=== PATIENT | female | born 1975 | race Caucasian/White ===

== ENCOUNTER 2024-02-27 18:15 | Emergency (ER) | payer OTHER, SELFPAY ==
--- NOTE | ~2024-02-27 | XR_ITS ---
EXAMINATION: XR chest 2V 02/27/2024 19:01 INDICATION: Chest pain PROCEDURE: 2 view chest COMPARISON: No prior studies for comparison. FINDINGS: The lungs are clear. The cardiomediastinal silhouette is within normal limits. There are no pleural effusions. There is no pneumothorax suspected. IMPRESSION: 1: NO ACUTE CARDIOPULMONARY DISEASE. Reviewed, dictated and finalized at location A.
--- NOTE | 2024-02-27 18:16 | ECG_ITS ---
SEE SCANNED COPY FOR CONFIRMED REPORT MTDD
[2024-02-27 18:25] VITALS: BP 127/98; PULSE 92; RESP 16; TEMP 36.6; O2SAT 99
[2024-02-27 19:00] LABS: Basophils Absolute Auto 0.1 K/mm3 (0.0-0.1); Basophils Percent Auto 0.6 % (0.2-1.2); Eosinophils Absolute Auto 0.1 K/mm3 (0-0.3); Eosinophils Percent Auto 1.1 % (0-4.4); Hemoglobin 14.9 g/dL (12.0-15.0); Immature Granulocyte Absolute 0.03 K/mm3 (0.00-0.031); Immature Granulocyte Percent A 0.3 % (0-0.5); Lymphocytes Absolute Auto 3.19 K/mm3 (0.9-3.2); Lymphocytes Percent Auto 31.6 % (18.3-44.2); Mean Corpuscular HGB Conc 33.1 g/dl (32-36); Mean Corpuscular Hemoglobin 31.1 pg (26-34); Mean Corpuscular Volume 93.9 fl (80-100); Mean Platelet Volume 10.7 fl (7.4-10.4); Monocytes Absolute Auto 0.8 K/mm3 (0.1-0.6); Monocytes Percent Auto 7.7 % (2.6-8.5); Neutrophils Absolute Auto 5.9 K/mm3 (1.3-6.7); Neutrophils Percent Auto 58.7 % (45.5-73.1); Platelet Count Result 338 k/mm3 (150-375); Red Blood Count 4.79 M/mm3 (4.2-5.4); Red Cell Distribution Width 13.2 % (11.5-14.5); White Blood Count 10.1 K/mm3 (4.5-10.0)
[2024-02-27 19:04] LABS: Alanine Aminotransferase 15 U/L (6-35); Albumin Level 4.7 g/dL (3.5-5.1); Alkaline Phosphatase 79 U/L (38-126); Anion Gap 9 mmol/L (4-12); Aspartate Amino Transferase 21 U/L (14-36); Bilirubin,Total 0.5 mg/dL (0.2-1.3); Blood Urea Nitrogen 4 mg/dL (7-17); Calcium 8.9 mg/dL (8.4-10.2); Carbon Dioxide 22 mmol/L (22-30); Chloride 107 mmol/L (98-107); Estimated CRCL calculation 90 ml/min; Estimated Glomerular Filt Rate > 60; Glucose 123 mg/dL (65-110); Lipase 123 U/L (23-300); Potassium 3.6 mmol/L (3.4-5.0); Sodium 138 mmol/L (137-145)
[2024-02-27 19:05] LABS: Prothrombin Time 13.2 Seconds (11.1-14.7)
[2024-02-27 19:15] LABS: Troponin I 0.015 ng/mL (0.000-0.034)
--- NOTE | 2024-02-27 21:16 | ECG_ITS ---
SEE SCANNED COPY FOR CONFIRMED REPORT MTDD
[2024-02-27] MEDS: Please add drug allergy info to patient profile. 1 EACH XX (21:18)
[2024-02-27 21:21] VITALS: BP 156/88; PULSE 76; PULSE 83; RESP 17; O2SAT 100; O2SAT 99
[2024-02-27] MEDS: ASPIRIN 81 MG CHEWABLE TABLET 324 MG PO (21:44)
[2024-02-27 21:45] VITALS: BP 156/88; PULSE 88; RESP 20; O2SAT 98
[2024-02-27 21:54] LABS: Troponin I 0.014 ng/mL (0.000-0.034)
[2024-02-27 22:00] LABS: Appearance Urine Clear (Clear); Bilirubin Urine Negative (Negative); Blood Urine Negative (Negative); Color Urine Yellow (Yellow); Glucose Urine UA Negative (Negative); Ketones Urine Trace mg/dL (Negative); Leukocyte Esterase Ur Negative LEU/UL (Negative); Nitrate Urine Negative (Negative); Protein Urine Negative (Negative); Specific Grav Ur 1.022 (1.001-1.035); pH Urine 5.5 (5.0-9.0)
[2024-02-27 22:09] LABS: Add Urine Microscopic? NO
[2024-02-27 22:17] LABS: Amphetamine Screen Urine Negative (Negative); Barbiturate Screen Urine Negative (Negative); Benzodiazepines Screen Urine Positive (Negative); Cannabinoid Screen Urine Positive (Negative); Cocaine Screen Urine Negative (Negative); Methadone Screen Urine Negative (Negative); Opiate Screen Urine Negative (Negative); Phencyclidine Screen Urine Negative (Negative)
--- NOTE | 2024-02-27 22:43 | ED.GENADULT ---
HPI - General Adult General Chief complaint: Chest Pain Stated complaint: chest pain Time Seen by Provider: 02/27/24 21:12 History of Present Illness HPI narrative: This is a 48 female presenting multiple complaints. She has complained that she has a lump on the back of her skull. She says she got CT the past and was told this is a lipoma. However she now feels like it has dropped down neck. She also has a lump behind her right nipple. She says she just noticed yesterday it is painful to touch. No erythema or redness. Patient is also complaining of subjective fever and chills with a cough. Related Data Home Medications Medication Instructions Recorded Confirmed hydroxychloroquine 200 mg tablet 200 mg PO DAILY 02/27/24 02/27/24 Allergies Allergy/AdvReac Type Severity Reaction Status Date / Time No Known Allergies Allergy Verified 02/27/24 21:18 Exam Narrative: APPEARANCE: No apparent distress. Head: atraumatic, EYES: EOMI, NOSE: Atraumatic NECK: Trachea midline RESPIRATORY: No increased rate of breathing , clear to auscultation Breast exam: Tender mass behind the right nipple, point of care ultrasound was not consistent with abscess. No overlying skin changes CARDIOVASCULAR: RRR, no peripheral edema ABDOMINAL: Non-distended soft nontender MUSCULOSKELETAl: No obvious deformities NEURO: Alert. Moving 4/4 extremities SKIN:: Warm, dry. Normal color PSYCHIATRIC: Normal affect Course Vital Signs Vital signs: Vital Signs Temperature 97.8 F 02/27/24 18:25 Pulse Rate 92 02/27/24 18:25 Respiratory Rate 16 02/27/24 18:25 Blood Pressure 127/98 H 02/27/24 18:25 Pulse Oximetry 99 02/27/24 18:25 Oxygen Delivery Room Air 02/27/24 18:25 Temperature 97.8 F 02/27/24 18:25 Pulse Rate 88 02/27/24 21:45 Respiratory Rate 20 02/27/24 21:45 Blood Pressure 156/88 H 02/27/24 21:45 Pulse Oximetry 98 02/27/24 21:45 Oxygen Delivery Room Air 02/27/24 21:21 Medical Decision Making [facility] Narrative Medical decision making narrative: -Course: 48-year-old female presenting with multiple complaints including a chronic lump behind her left ear, a lump behind her right breast and a cough with subjective fevers. Workup was ordered per nursing protocol I added viral swabs chest x-ray. I ultrasounded the lump on the patient's breast. there is no evidence abscess. I recommended primary care follow-up for breast mass workup. At this point the patient asked me if I was going to give her antibiotics or not for her infection. When I asked her what infection she was speaking about she said my cough. I told her that I was waiting for the viral swabs to return before we discussed abx. The patient became irate and eloped. patient had clear lungs, a negative chest x-ray respiratory distress. Patient's urine drug screen was positive for benzodiazepines/cannabinoids. Patient had denied any drug use. -DDX includes but is not limited to: Viral illness, pneumonia Breast abscess, neoplasm -Co-morbidities complicating care: benzodiazepine and cannabinoid use, lupus -Social determinants of health: patient just moved here from [place]. denies use of drugs or alcohol although urine drug screen was positive for THC and benzodiazepines. -Shared decision making / Disposition: Eloped Vital Signs Vital Signs: Vital Signs Temperature 97.8 F 02/27/24 18:25 Pulse Rate 92 02/27/24 18:25 Respiratory Rate 16 02/27/24 18:25 Blood Pressure 127/98 H 02/27/24 18:25 Pulse Oximetry 99 02/27/24 18:25 Oxygen Delivery Room Air 02/27/24 18:25 Temperature 97.8 F 02/27/24 18:25 Pulse Rate 88 02/27/24 21:45 Respiratory Rate 20 02/27/24 21:45 Blood Pressure 156/88 H 02/27/24 21:45 Pulse Oximetry 98 02/27/24 21:45 Oxygen Delivery Room Air 02/27/24 21:21 Lab Data 02/27/24 18:31 02/27/24 18:31 Labs: Lab Results 02/27/24 02/27/24
[2024-02-27 22:53] LABS: Influenza A QL RT-PCR Negative (Negative); Influenza B QL RT-PCR Negative (Negative); RSV RNA, RT-PCR Negative (Negative); SARS-CoV-2 RNA PCR Negative (Negative)
== END 2024-02-27 22:40 | disposition left against medical advice (07) ==
PROVIDERS: Emergency Medicine; Emergency Provider Emergency Medicine
DX: N63.10 Unspecified lump in the right breast, unspecified quadrant (principal); F13.20 Sedative, hypnotic or anxiolytic dependence, uncomplicated; F12.20 Cannabis dependence, uncomplicated; Z20.822 Contact with and (suspected) exposure to COVID-19; M32.9 Systemic lupus erythematosus, unspecified
CPT/HCPCS: 36415; 71046; 80053; 80307; 81003; 83690; 84484; 85025; 85610; 85730; 87637; 93005; 99284; A9270

== ENCOUNTER 2024-03-02 16:08 | Outpatient (CLI) | payer OTHER, SELFPAY ==
--- NOTE | ~2024-03-02 | US_ITS ---
US breast RT complete 03/02/2024 16:31 Indication: Abscess of the right nipple Procedure: High-resolution ultrasound of the right breast Comparison: No prior studies for comparison. Findings: In the subareolar location of the right breast there is a complex heterogeneous area with f luid component and increased vascularity. The margins are not well-defined for measurement. Impression: 1: Complex partially cystic area of subareolar soft tissue, most likely abscess given the clinical hi story. Recommend follow-up ultrasound in 6-8 weeks following appropriate therapy. BI-RADS CATEGORY 3-PROBABLY BENIGN FINDING Reviewed, dictated and finalized at location B. Impression: 1: Complex partially cystic area of subareolar soft tissue, most likely abscess given the clinical history. Recommend follow-up ultrasound in 6-8 weeks follow ing appropriate therapy. BI-RADS CATEGORY 3-PROBABLY BENIGN FINDING
== END 2024-03-02 16:09 | disposition home or self-care (01) ==
LOC: ANHIMG 16:08
PROVIDERS: PCP Family Medicine; Visit Provider Family Medicine
DX: N61.1 Abscess of the breast and nipple (principal); R92.8 Other abnormal and inconclusive findings on diagnostic imaging of breast
CPT/HCPCS: 76641

== ENCOUNTER 2024-04-17 07:43 | Outpatient (CLI) | payer OTHER, SELFPAY ==
--- NOTE | ~2024-04-17 | US_ITS ---
US breast RT limited 04/17/2024 08:14 Indication: History of breast abscess. Mastodynia. Procedure: High-resolution Limited ultrasound of the right breast Comparison: Ultrasound dated 03/02/2024 Findings: In the periareolar location the right breast at 2:00 there is a irregular shaped hypoechoic structure measuring 1.4 x 1.4 x .6 cm compared with 2.3 x 1.8 x 1 cm on prior examination, likely re solving infection. No other discrete mass identified. There is increased vascularity within this soft tissue. No significant posterior features. Impression: 1: Decreased size of irregular hypoechoic mass in the periareolar location of the right breast at 2:0 0, likely resolving infection. Recommend follow-up ultrasound in 2-3 months following appropriate the rapy. BI-RADS CATEGORY 3-PROBABLY BENIGN FINDING Reviewed, dictated and finalized at location B. Impression: 1: Decreased size of irregular hypoechoic mass in the periareolar location of t he right breast at 2:00, likely resolving infection. Recommend follow-up ultras ound in 2-3 months following appropriate therapy. BI-RADS CATEGORY 3-PROBABLY BENIGN FINDING
== END 2024-04-17 07:44 | disposition home or self-care (01) ==
PROVIDERS: PCP Family Medicine; Visit Provider Surgery
DX: N64.4 Mastodynia (principal); N61.1 Abscess of the breast and nipple
CPT/HCPCS: 76642

== ENCOUNTER 2024-05-22 01:24 | Day surgery (SDC) | payer OTHER, SELFPAY ==
[2024-05-12 10:19] VITALS: BMI 25.0
--- NOTE | 2024-05-12 10:37 | SUR.PREOP ---
Report to the Outpatient Waiting Room, entrance under the green pavilion located off [facility], at time 0800 on date 05/22/24. Planned Procedure Time: 1000. Time changes happen often and if your time is changed the preop area will call you the afternoon before. - You and your visitor will be asked to self-screen and do not enter if you have any COVID symptoms. - A mask is optional within the hospital at this time. Patients may have clear liquids (water, carbonated beverages, clear teas, apple juice) until 3 hours prior to surgery with a maximum of 20 ounces. - No food from midnight until time of surgery Take the following medications with a SIP of water the morning of surgery: MAY TAKE CYCLOBENZAPRINE AND PERCOCET IF NEEDED DO NOT STOP ANY OF YOUR OTHER PRESCRIPTION MEDICATIONS PRIOR TO SURGERY ?EXCEPT THE FOLLOWING Medications to discontinue per physician N/A Date to take last dose N/A Please no make-up, nail lithuanian, hairspray, perfume, deodorant, or body powder the day of surgery. No jewelry (including any body piercings) or valuables the day of surgery, leave them at home. Please take a shower or bath the night before, or the morning of, surgery with an antibacterial soap. Wear comfortable, loose fitting clothing. Children are encouraged to wear pajamas. - Jewelry must be removed prior to entering the operating room. Rings and piercings that are not removed may be cut off. - The hospital will not accept responsibility for valuables. - Please leave all valuables, including medications, at home the day of surgery. If you are going home after surgery, a licensed armored car guard and driver must drive you home. - NO public transportation without another adult if you receive anesthesia. - We recommend that an adult stay with you for 24 hours following discharge. - We also recommend that you do not drive, make important decision, drink alcoholic beverages, or take any drugs that were not prescribed by your health care provider for at least 24 hours after your discharge time. Follow any additional instructions given to you from your surgeon. If you or anyone in your household have experienced Covid symptoms in the past week, please notify your surgeon or the nurse liaison at the phone number below for possible testing. Telephone instructions given to SINTIA IBARRA and asked if any additional questions and then verbalized understanding. Patient advised to call surgeon office or pre surgery nurse liaison [phone] if any additional questions.
--- NOTE | 2024-05-21 15:47 | PM.IMHP ---
H&P: HPI History of Present Illness Date/Time: 05/21/24 15:47 Chief Complaint: left postauricular mass Narrative: planned procedure Review of Systems Review of Systems: All systems reviewed & are unremarkable except as noted in HPI and below PMFSH Past Medical History Medical History (Updated 04/28/24 @ 11:44 by Jennifer Brock MD) Breast abscess Breast pain Surgical History Surgical History H/O breast augmentation 2003 H/O: hysterectomy 1996 History of back surgery 2007 2010 2019 Family History Family History Father Hypertension Depression Cerebrovascular accident Anxiety Heart disease Mother Thyroid disease Social History Social History (Updated 04/16/24 @ 11:01 by Lesley Taylor CMA) Smoking packs per day: 1.5 Smoking cigarettes per day: 30.0 Years smoked: 15 Smoking pack-years: 22.50 Smoking status: Former smoker Tobacco type: cigarettes Smoking end date: 11/18/08 Alcohol intake: current Drinks per week: 1 Alcohol use details: Once every couple months Substance use: never Substance use type: does not use Last use: quit 2008 Do You Feel Safe in your Home?: Yes Lack of Transportation: No Lack of Food: Never True Current Housing: I Have Housing Concerned About Future Housing: No Difficulty Paying Gas/Electric Bills: No Difficulty Paying for Meds: No Currently Unemployed: Decline to Answer Education: Bachelor's Degree Difficulty w/ Childcare or Family Care: No Living arrangements: with family Spiritual care concerns: No Meds Home Medications and Allergies Home Medications Medication Instructions Recorded Confirmed Type hydroxychloroquine 200 mg tablet 200 mg PO DAILY 02/27/24 05/12/24 History cyclobenzaprine 5 mg tablet 5 mg PO TID PRN Pain 03/25/24 05/12/24 History hydrocortisone 1 % topical cream 1 applic topical TID PRN Itching 03/25/24 05/12/24 History (Anti-Itch (hydrocortisone)) oxycodone-acetaminophen 5 mg-325 1 tablet PO TID PRN Pain 03/25/24 05/12/24 History mg tablet (Percocet) tretinoin 0.025 % topical cream 1 applic topical QHS 03/25/24 05/12/24 History amoxicillin 875 mg-potassium 1 tablet PO BID #20 tabs 05/18/24 Rx clavulanate 125 mg tablet Allergies Allergy/AdvReac Type Severity Reaction Status Date / Time No Known Allergies Allergy Verified 04/28/24 11:29 Exam Narrative: left postauricular mass Assessment and Plan Assessment and plan (1) Mass of postauricular area: Code(s): R22.0 - Localized swelling, mass and lump, head Status: Acute Assessment and Plan: Plan, OR for excision of left post auricular mass. LMA ok. Risks discussed bleeding infection damage to surrounding structures need for further procedures failure to resolve symptoms regrowth of lesion. Need further treatment of more sinister in etiology such as malignancy. Cosmetic change left shave the hair. Possible need for drain placement. Patient voiced understanding of these risks and agreed. Possible damage to any structure of the clavicles myself possible damage to any structure during placement of LMA.
[2024-05-22] VITALS (7 sets, daily range): BP systolic 116–142; BP diastolic 79–96; PULSE 65–79; RESP 12–20; TEMP 36–36.1; O2SAT 99–100
--- NOTE | 2024-05-22 07:19 | WPDHPUPDATE1 ---
History and Physical Update Update Date/Time: 05/22/24 07:19 History and Physical has been reviewed, including an updated exam of the patient. There are NO changes in the patient's condition. Risks, benefits, and alternatives have been discussed and questions answered. Patient agrees to proceed with procedure.
[2024-05-22] MEDS: LACTATED RINGERS 1,000 ML 30 ML IV CONT ×2 (09:00→11:18)
--- NOTE | 2024-05-22 09:23 | WPDANESEPPF ---
Anes - Initial Pre Proc Eval Procedure: Operation Date: 05/22/24 10:00 Proposed Procedures p Left Sided Postauricular Excision of Cyst/ Lesion - Hayden Eng MD Date/Time: 05/22/24 09:23 Surgeon: Hayden Eng MD Pre Op Diagnosis: post auricular mass Patient Data Age: 48 Gender: F Height: 1.68 m Weight: 71.55 kg Last Vital Signs Temp 36.1 C L 05/22/24 08:22 Pulse 79 05/22/24 08:22 Resp 20 05/22/24 08:22 BP 142/88 H 05/22/24 08:22 Pulse Ox 100 05/22/24 08:22 O2 Del Method Room Air 05/22/24 08:22 Allergies Allergy/AdvReac Type Severity Reaction Status Date / Time No Known Allergies Allergy Verified 05/22/24 08:22 Home Medications Medication Instructions Recorded Confirmed Type hydroxychloroquine 200 mg tablet 200 mg PO DAILY 02/27/24 05/22/24 History cyclobenzaprine 5 mg tablet 5 mg PO TID PRN Pain 03/25/24 05/22/24 History hydrocortisone 1 % topical cream 1 applic topical TID PRN Itching 03/25/24 05/22/24 History (Anti-Itch (hydrocortisone)) oxycodone-acetaminophen 5 mg-325 1 tablet PO TID PRN Pain 03/25/24 05/22/24 History mg tablet (Percocet) tretinoin 0.025 % topical cream 1 applic topical QHS 03/25/24 05/22/24 History amoxicillin 875 mg-potassium 1 tablet PO BID #20 tabs 05/18/24 05/22/24 Rx clavulanate 125 mg tablet Patient hx anesthesia problems: none Family hx anesthesia problems: none Results Review: All pre-operative results and documents have been reviewed as part of the pre-operative evaluation. 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 Surgical History Surgical History H/O breast augmentation 2003 H/O: hysterectomy 1996 History of back surgery 2007 2010 2019 Family History Family History Father Hypertension Depression Cerebrovascular accident Anxiety Heart disease Mother Thyroid disease Social History Social History Smoking packs per day: 1.5 Smoking cigarettes per day: 30.0 Years smoked: 15 Smoking pack-years: 22.50 Smoking status: Former smoker Tobacco type: cigarettes Smoking end date: 11/18/08 Alcohol intake: current Drinks per week: 1 Alcohol use details: Once every couple months Substance use: never Substance use type: does not use Last use: quit 2008 Do You Feel Safe in your Home?: Yes Lack of Transportation: No Lack of Food: Never True Current Housing: I Have Housing Concerned About Future Housing: No Difficulty Paying Gas/Electric Bills: No Difficulty Paying for Meds: No Currently Unemployed: Decline to Answer Education: Bachelor's Degree Difficulty w/ Childcare or Family Care: No Living arrangements: with family Spiritual care concerns: No Anes - Eval Final PreProcedure Day of Procedure 05/22/24 09:23 Patient weight: normal Heart: regular rate and rhythm Lungs: clear to auscultation Airway: Mallampati scale class II Neurological: alert and oriented Last oral intake: >/= 8 hours ASA classification: III Emergent: no Anesthetic plan: proceed Anesthesia type and monitoring: general LMA and standard monitoring Results Review: All pre-operative results and documents have been reviewed as part of the pre-operative evaluation. Informed Consent: The patient's anesthetic plan and its attendant risks and benefits were discussed with the patient/family/POA. Questions were solicited and answers provided to the satisfaction of the patient/family/POA.
[2024-05-22] MEDS: LIDO 1%/EPINEPHRINE 1:100,000 50 ML VIAL 10 ML INFILTRATE (10:00)
[2024-05-22] MEDS: ceFAZolin SODIUM 1 GM VIAL 2 GM IV PUSH (10:03)
--- NOTE | 2024-05-22 12:05 | P.OP_ITS ---
Procedure Note - Detailed Date of Procedure 05/22/24 Pre-op Diagnosis post auricular massLeft-sided Post-op Diagnosis Same Procedure Performed excision of left scalp / postauricular mass mass was about 3 cm Surgeon Hayden Eng MD Anesthesia General Indications see above Findings large cyst consistent with epidermal inclusion cyst. Removed in totality. This deep it went down all the way to the periosteum. Description of Procedure Patient identified consent verified preop. Patient brought operating. Time- out performed. General anesthesia induced endotracheal tube sorry LMA secured. Patient prepped draped position procedure confirmed. Site was marked. A 15 blade utilized to cut through the epidermis and dermis. Incision was only about 2-3 cm long. This was incised over pre drawn surgical incision prior to incision about 0.5 cc 1% lidocaine with [id number] parts epinephrine was injected deep to the pre drawn surgical incision. Blunt dissection was carried down through the subcutaneous fat. The cyst was then encountered dissected around with tenotomy scissors. Any bleeding was controlled with bipolar electrocautery setting of 10. The cyst was completely circumscribed and removed. The wound was then copiously irrigated out with sterile normal saline. The cyst did rupture upon removal. The entire cyst wall was accounted for. Deep layers closed with 3 interrupted Vicryl sutures. Skin was closed with running 5 0 fast gut suture. Antibiotic ointment was applied. Patient tolerated the procedure well no complications blood loss 1 cc. I performed all dictated portions procedure no complications. Estimated Blood Loss 1 Drains No Packing No Pathology Yes Complications No immediate complications Condition Stable Disposition PACU [facility] Billing Surgery - Charge Forward: Surgery Billing
[2024-05-22] MEDS: oxyCODONE HCL (*CRX) 5 MG TAB IR PO (12:16)
== END 2024-05-22 12:36 | disposition home or self-care (01) ==
PROVIDERS: PCP Family Medicine; Visit Provider Otolaryngology
PROC: (CPT 11423; principal; 2024-05-22 10:00)
DX: L72.0 Epidermal cyst (principal); J44.9 Chronic obstructive pulmonary disease, unspecified; Z98.890 Other specified postprocedural states; Z98.1 Arthrodesis status; Z79.891 Long term (current) use of opiate analgesic; Z87.891 Personal history of nicotine dependence; Z86.79 Personal history of other diseases of the circulatory system; Z82.49 Family history of ischemic heart disease and other diseases of the circulatory system
CPT/HCPCS: 11423; 12032; 88305; A9270; J0360; J0690; J2250; J2405; J2704; J3010; J7120

== ENCOUNTER 2024-06-10 00:34 | Day surgery (SDC) | payer OTHER, SELFPAY ==
[2024-06-08 14:42] VITALS: BMI 25.0
--- NOTE | 2024-06-08 15:10 | PC.NURSE ---
Report to the Outpatient Waiting Room, entrance under the green pavilion located off [facility], at time __0600AM on date _06/10/24 . Planned Procedure Time: ___0730AM . Time changes happen often and if your time is changed the preop area will call you the afternoon before. - You and your visitor will be asked to self-screen and do not enter if you have any COVID symptoms. - A mask is optional within the hospital at this time. Patients may have clear liquids (water, carbonated beverages, clear teas, apple juice) until 3 hours prior to surgery with a maximum of 20 ounces. - No food from midnight until time of surgery Take the following medications with a SIP of water the morning of surgery: __FLEXERIL AND OXYOCODONE NEEDED DO NOT STOP ANY OF YOUR OTHER PRESCRIPTION MEDICATIONS PRIOR TO SURGERY ?EXCEPT THE FOLLOWING Medications to discontinue per physician N/A Date to take last dose___N/A Please no make-up, nail malawian, hairspray, perfume, deodorant, or body powder the day of surgery. No jewelry (including any body piercings) or valuables the day of surgery, leave them at home. Please take a shower or bath the night before, or the morning of, surgery with an antibacterial soap. Wear comfortable, loose fitting clothing. - Jewelry must be removed prior to entering the operating room. Rings and piercings that are not removed may be cut off. - The hospital will not accept responsibility for valuables. - Please leave all valuables, including medications, at home the day of surgery. If you are going home after surgery, a licensed helper driver must drive you home. - NO public transportation without another adult if you receive anesthesia. - We recommend that an adult stay with you for 24 hours following discharge. - We also recommend that you do not drive, make important decision, drink alcoholic beverages, or take any drugs that were not prescribed by your health care provider for at least 24 hours after your discharge time. Follow any additional instructions given to you from your surgeon. If you or anyone in your household have experienced Covid symptoms in the past week, please notify your surgeon or the nurse liaison at the phone number below for possible testing. Telephone instructions given to ___LESLIE and asked if any additional questions and then verbalized understanding. Patient advised to call surgeon office or pre surgery nurse liaison [phone] if any additional questions.
[2024-06-10] VITALS (8 sets, daily range): BP systolic 124–142; BP diastolic 76–95; PULSE 77–102; RESP 9–18; TEMP 36.6–37.1; O2SAT 100
[2024-06-10] MEDS: ACETAMINOPHEN 500 MG TABLET 1000 MG PO (06:20)
[2024-06-10] MEDS: LACTATED RINGERS 1,000 ML 30 ML IV CONT ×2 (06:36→08:55)
[2024-06-10] MEDS: SCOPOLAMINE 1 MG PATCH 1 PATCH TRANSDERM (06:46)
--- NOTE | 2024-06-10 06:53 | WPDANESEPPF ---
Anes - Initial Pre Proc Eval Procedure: Operation Date: 06/10/24 07:30 Proposed Procedures p Excision Right Breast Subareolar Abscess, Possible Total Duct Excision, - Jennifer Brock MD s Removal Bilateral Breast Implants with Capsulectomy - Zhang Tyler MD Date/Time: 06/10/24 06:53 Surgeon: Jennifer Brock MD Pre Op Diagnosis: breast pain, implant rupture, breast abscess Patient Data Age: 48 Gender: F Height: 1.68 m Weight: 72.8 kg Last Vital Signs Temp 37.1 C 06/10/24 06:37 Pulse 92 06/10/24 06:37 Resp 16 06/10/24 06:37 BP 133/76 06/10/24 06:37 Pulse Ox 100 06/10/24 06:37 O2 Del Method Room Air 06/10/24 06:37 Allergies Allergy/AdvReac Type Severity Reaction Status Date / Time No Known Allergies Allergy Verified 06/10/24 06:03 Home Medications Medication Instructions Recorded Confirmed Type hydroxychloroquine 200 mg tablet 200 mg PO HS 02/27/24 06/10/24 History cyclobenzaprine 5 mg tablet 5 mg PO TID PRN Pain 03/25/24 06/10/24 History hydrocortisone 1 % topical cream 1 applic topical TID PRN Itching 03/25/24 06/10/24 History (Anti-Itch (hydrocortisone)) tretinoin 0.025 % topical cream 1 applic topical QHS 03/25/24 06/10/24 History oxycodone 5 mg tablet 5 mg PO Q12H PRN pain #10 tabs 05/22/24 06/10/24 Rx dicloxacillin 500 mg capsule 500 mg PO Q6H #30 caps 06/04/24 06/10/24 Rx Patient hx anesthesia problems: none Family hx anesthesia problems: none Results Review: All pre-operative results and documents have been reviewed as part of the pre-operative evaluation. 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 Surgical History Surgical History H/O breast augmentation 2003 H/O: hysterectomy 1997 History of back surgery 2007 2010 2019 Family History Family History Father Hypertension Depression Cerebrovascular accident Anxiety Heart disease Mother Thyroid disease Social History Social History Smoking packs per day: 1.5 Smoking cigarettes per day: 30.0 Years smoked: 15 Smoking pack-years: 22.50 Smoking status: Former smoker Tobacco type: cigarettes Smoking end date: 11/18/08 Alcohol intake: never Drinks per week: 1 Alcohol use details: Once every couple months Substance use: never Substance use type: does not use Last use: quit 2008 Do You Feel Safe in your Home?: Yes Lack of Transportation: No Lack of Food: Never True Current Housing: I Have Housing Concerned About Future Housing: No Difficulty Paying Gas/Electric Bills: No Difficulty Paying for Meds: No Currently Unemployed: Decline to Answer Education: Bachelor's Degree Difficulty w/ Childcare or Family Care: No Living arrangements: with family Spiritual care concerns: No Anes - Eval Final PreProcedure Day of Procedure 06/10/24 06:53 Patient weight: normal Heart: regular rate and rhythm Lungs: clear to auscultation Airway: Mallampati scale class II Neurological: alert and oriented Last oral intake: >/= 8 hours ASA classification: III Emergent: no Anesthetic plan: proceed Anesthesia type and monitoring: general ETT and standard monitoring Results Review: All pre-operative results and documents have been reviewed as part of the pre-operative evaluation. Informed Consent: The patient's anesthetic plan and its attendant risks and benefits were discussed with the patient/family/POA. Questions were solicited and answers provided to the satisfaction of the patient/family/POA.
--- NOTE | 2024-06-10 07:01 | WPDHPUPDATE1 ---
History and Physical Update Update Date/Time: 06/10/24 07:01 - OR for right total duct excision, excision /closure of mammary duct fistula tract, excision of subareolar abscess. History and Physical has been reviewed, including an updated exam of the patient. There are NO changes in the patient's condition. Risks, benefits, and alternatives have been discussed and questions answered. Patient agrees to proceed with procedure.
--- NOTE | 2024-06-10 07:10 | PM.HPGS ---
History of Present Illness History of Present Illness Chief complaint: breast pain, implant rupture, breast abscess Narrative: Patient seen and examined in pre-operative holding area. No interval change in medical history or symptoms. Patient remembers previous discussion of benefits and alternatives to procedure. Continues to desire to proceed with bilateral breast implant removal and capsuletomy . I reviewed the risks including but not limited to bleeding ,infection, seroma, asymmetry, undesireable cosmetic appearance, partial/total skin/nipple loss, no change or worsening of symptoms, change in sensation. I discussed the possible use of assistants and their level of participation in the case. Patient stated understanding and signed the consent form wishing to proceed Review of Systems Review of Systems: All systems reviewed & are unremarkable except as noted in HPI and below PMFSH Past Medical History Medical History Breast abscess Breast pain COPD (chronic obstructive pulmonary disease) History of CVA (cerebrovascular accident) 07/06. few residual speech and memory issues Surgical History Surgical History H/O breast augmentation 2003 H/O: hysterectomy 1996 History of back surgery 2007 2010 2019 Family History Family History Father Hypertension Depression Cerebrovascular accident Anxiety Heart disease Mother Thyroid disease Social History Social History Smoking packs per day: 1.5 Smoking cigarettes per day: 30.0 Years smoked: 15 Smoking pack-years: 22.50 Smoking status: Former smoker Tobacco type: cigarettes Smoking end date: 11/18/08 Alcohol intake: never Drinks per week: 1 Alcohol use details: Once every couple months Substance use: never Substance use type: does not use Last use: quit 2008 Do You Feel Safe in your Home?: Yes Lack of Transportation: No Lack of Food: Never True Current Housing: I Have Housing Concerned About Future Housing: No Difficulty Paying Gas/Electric Bills: No Difficulty Paying for Meds: No Currently Unemployed: Decline to Answer Education: Bachelor's Degree Difficulty w/ Childcare or Family Care: No Living arrangements: with family Spiritual care concerns: No Meds Home Medications and Allergies Home Medications Medication Instructions Recorded Confirmed Type hydroxychloroquine 200 mg tablet 200 mg PO HS 02/27/24 06/10/24 History cyclobenzaprine 5 mg tablet 5 mg PO TID PRN Pain 03/25/24 06/10/24 History hydrocortisone 1 % topical cream 1 applic topical TID PRN Itching 03/25/24 06/10/24 History (Anti-Itch (hydrocortisone)) tretinoin 0.025 % topical cream 1 applic topical QHS 03/25/24 06/10/24 History oxycodone 5 mg tablet 5 mg PO Q12H PRN pain #10 tabs 05/22/24 06/10/24 Rx dicloxacillin 500 mg capsule 500 mg PO Q6H #30 caps 06/04/24 06/10/24 Rx Allergies Allergy/AdvReac Type Severity Reaction Status Date / Time No Known Allergies Allergy Verified 06/10/24 06:03 Vital Signs Vital Signs - 24 hr 06/10/24 06:37 Temperature 37.1 C Pulse Rate 92 Respiratory Rate 16 Blood Pressure 133/76 Pulse Oximetry 100 Oxygen Delivery Room Air Exam Narrative: unchanged Assessment and Plan Assessment and plan (1) Breast implant deflation: Qualifiers: Encounter type: subsequent encounter Qualified Code(s): T85.49XD - Other mechanical complication of breast prosthesis and implant, subsequent encounter Code(s): T85.49XA - Other mechanical complication of breast prosthesis and implant, initial encounter Status: Acute Assessment and Plan: cont as above
--- NOTE | 2024-06-10 07:10 | W.PM.PROC2 ---
Procedure Note - Detailed Date of Procedure 06/10/24 Pre-op Diagnosis breast pain, implant rupture, breast abscess Post-op Diagnosis Same Procedure Performed bilateral breast implant removal and capsulectomy and pec major repair Surgeon Zhang Tyler MD Electrician Chief lisy mcclure pa-c Anesthesia General Description of Procedure Patient was seen in the preoperative holding area where the breasts were marked and consent form signed. She was taken back to the operating room placed on the table in the supine position. Time-out was performed with Anesthesia, surgeons, and staff agreeing on patient's name site, and surgery to be performed. SCDs were placed on the lower extremities and inflated. Antibiotics were given IV. After general anesthesia was administered the breasts were prepped and draped in usual sterile fashion. While Dr. Brock performed the right breast duct excision dictated separately I proceeded with making a incision just above the inframammary fold of the left breast through skin and dermis with a 15 blade scalpel. Bovie cautery was used to dissect through subcutaneous tissue down to the capsule. I elevated the capsule superiorly until I reached the inferior border of the yoon noting her implant had been placed submuscularly. I then proceed with further a capsulectomy underneath the pectoralis major muscle and proceeded with performing a subtotal capsulectomy. The ruptured deflated left breast implant was removed. I proceeded with repairing the pectoralis major muscle down to the chest wall with 2-0 Vicryl sutures to help reduce possible seroma cavity but also to aid in lutheran of normal anatomy and function. A 10 [place] CLEMENTINE drain was placed in the remaining cavity. I irrigated with normal saline. Hemostasis was obtained with Bovie cautery. I closed deep subcu tissue and dermis with 3-0 Vicryl suture. 4-0 Monocryl was used for subcuticular closure. 10 cc of 1% lidocaine with epinephrine and 0.5% Marcaine plain were injected along the incision and anterior axillary line. The drain was hooked to bulb suction. When Dr. Buenrostro completed the right nipple duct excision proceeded with a similar procedure on the right making an incision just above the inframammary fold on the right breast through skin and dermis with a 15 blade scalpel. Bovie cautery was used to dissect through the subcutaneous tissue down to the breast capsule. Proceeded with performing subtotal capsulectomy of the right breast again noting the implant was placed in a submuscular position and removing this intact saline implant along with majority of the anterior portion of the capsule extending this underneath the pectoralis major. Again I repaired the pectoralis major muscle down to its insertions on the chest wall with 2-0 Vicryl suture. I irrigated with normal saline and hemostasis with Bovie cautery. A 10 [place]ankan drain was placed in the cavity. 3-0 Vicryl suture was used for subcutaneous and dermal closure followed by 4-0 Monocryl for subcuticular closure. 10 cc of 1% lidocaine with epinephrine and 0.5% Marcaine plain were injected along the incision and anterior axillary line. A dressing of Mastisol, Steri-Strips, 4 x 4, Tegaderm, ABDs and a breast binder was then applied. The drains were hooked to bulb suction. The patient was awakened from anesthesia and transferred to the recovery room in stable condition. Complications: None Estimated blood loss: 5 cc Disposition: Patient tolerated the procedure well and will be going home later today. Lisy Mcclure PA-C was essential for positioining, retraction, closure and dressing placement [facility] [place] Billing Surgery - Charge Forward: Surgery Billing ([id number],59 same for lisy adding modifier )
[2024-06-10] MEDS: ceFAZolin 2 GM/D5W 50 ML 2 GM/50 ML BAG IVPB (07:35)
[2024-06-10] MEDS: PIPERACILLIN/TAZ 4.5G/NS 100ML 4.5 GM/100 ML BAG IVPB (07:35)
[2024-06-10] MEDS: VANCOMYCIN 1,000 MG/NS 250 ML 1,000 MG/250 ML BAG 250 MG IVPB (07:41)
[2024-06-10] MEDS: LIDOCAINE HCL 1% LOCAL INJ 10 ML VIAL INFILTRATE (07:51)
[2024-06-10] MEDS: BUPIVACAINE/EPINEPHRINE 0.5% 10 ML VIAL INFILTRATE (07:51)
--- NOTE | 2024-06-10 08:40 | W.PM.PROC2 ---
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 Post-op Diagnosis Same Procedure Performed Right total duct excision, take down of mammary duct fistula, excision of subareolar abscess. Surgeon Jennifer Brock MD Stiff Straw Hat Washer Abby Copeland PA-C Anesthesia General Description of Procedure Patient was identified in the pre-operative area and brought to the OR suite. She was was laid supine in the operating table and sequential compression devices were applied. Anesthesia was induced without difficulty. Bilateral breast were prepped and draped in a sterile fashion. Attention was then turned to the right breast. A small periareolar incision was made and dissection was carried down through the dermis and around the superficial subareolar abscess capsule. This was completely excised in extended my excision into the central mammary ducts for a total duct excision. The specimen was sent to pathology as a permanent specimen. The cavity was irrigated with saline and hemostasis was assured. The previous opening to the nipple skin medially was probed with a lacrimal probe but I was unable to identify a connection to the central ducts intraoperatively. I did not proceed to apply cautery in the area of the mammary fistula hopes promoting scarring of the tract. I again irrigated the cavity and there was no further evidence of infection or abnormal mammary tissue. Several interrupted 2 0 Vicryl intraparenchymal sutures were used to approximate the breast tissue centrally to prevent the nipple from retracting. The deep dermal layer was then closed with a 3-0 Vicryl interrupted suture followed by 4-0 Monocryl subcuticular fashion for the skin. Dermabond was applied followed by a sterile dressing and a surgical bra. Dr. Tyler worked concurrently for the implant removal and capsulectomy, please refer to his procedure note for further detail. Patient was awoken from anesthesia and taken to the recovery area in stable condition. All needles, instruments, and sponge counts were correct as reported by the operating room staff. Patient tolerated the procedure well with no immediate complications. Estimated Blood Loss 7 Drains Yes Packing No Pathology Yes Complications No immediate complications Condition Stable Disposition PACU [facility] Billing Surgery - Charge Forward: Surgery Billing (CPT 34337)
[2024-06-10] MEDS: fentaNYL CITRATE INJ (*CRX) 100 MCG/2 ML VIAL 25 MCG IV PUSH ×8 (09:10→09:34)
[2024-06-10] MEDS: oxyCODONE HCL (*CRX) 5 MG TAB IR PO (09:50)
== END 2024-06-10 10:40 | disposition home or self-care (01) ==
PROVIDERS: Plastic Surgery; PCP Family Medicine; Visit Provider Surgery
PROC: (CPT 19120; principal; 2024-06-10 07:30)
PROC: 0HPT0JZ Removal of Synthetic Substitute from Right Breast, Open Approach (ICD-10-PCS; CPT 19371; 2024-06-10 07:30)
DX: T85.41XA Breakdown (mechanical) of breast prosthesis and implant, initial encounter (principal); N61.1 Abscess of the breast and nipple; N60.32 Fibrosclerosis of left breast; N60.31 Fibrosclerosis of right breast; L72.0 Epidermal cyst; Y83.8 Other surgical procedures as the cause of abnormal reaction of the patient, or of later complication, without mention of misadventure at the time of the procedure; I69.311 Memory deficit following cerebral infarction; I69.328 Other speech and language deficits following cerebral infarction; Z87.891 Personal history of nicotine dependence
CPT/HCPCS: 19120; 19371; 19325; 88300; 88304; 88305; A9270; J0690; J1100; J1170; J2250; J2405; J2543; J2704; J3010; J3370; J7120

== ENCOUNTER 2024-07-10 14:44 | Outpatient (CLI) | payer OTHER, SELFPAY ==
--- NOTE | ~2024-07-10 | US_ITS ---
US breast RT limited 07/10/2024 15:10 Indication: History of mastitis. Abscess check. Procedure: High-resolution Limited ultrasound of the right breast Comparison: Comparison to multiple prior studies sequentially, with oldest reviewed study dated 03/02. Findings: In the subareolar/periareolar location of the right breast there is phlegmonous change with heterogeneous hypoechoic soft tissue. No discrete walled off fluid collection to suggest abscess. Th is area is significantly improved in appearance compared with prior ultrasounds, consistent with reso lving infection. Impression: 1: Significant decreased size of phlegmonous change compared with prior examinations with resolution of fluid, consistent with resolving infection. BI-RADS CATEGORY 3-PROBABLY BENIGN FINDING RECOMMENDATION: 3-6 month follow up recommended. Reviewed, dictated and finalized at location B. Impression: 1: Significant decreased size of phlegmonous change compared with prior examina tions with resolution of fluid, consistent with resolving infection. BI-RADS CATEGORY 3-PROBABLY BENIGN FINDING RECOMMENDATION: 3-6 month follow up recommended.
== END 2024-07-10 14:45 | disposition home or self-care (01) ==
PROVIDERS: PCP Family Medicine; Visit Provider Surgery
DX: N61.0 Mastitis without abscess (principal); N61.1 Abscess of the breast and nipple; R92.8 Other abnormal and inconclusive findings on diagnostic imaging of breast
CPT/HCPCS: 76642

== ENCOUNTER 2024-09-01 13:56 | Outpatient (CLI) | payer OTHER, SELFPAY ==
--- NOTE | ~2024-09-01 | MMUS_ITS ---
EXAMINATION: US breast BI complete, MM diagnostic selene BI w benjamín HISTORY: Abscess of the breast. Bilateral nipple discharge. History of recent subareolar duct excisio n. TECHNIQUE: Additional 3-D tomosynthesis images of the breasts were performed and synthetic 2-D images were generated. CAD analysis was submitted and interpreted. High resolution bilateral complete breas t ultrasound was performed. COMPARISON: Comparison to multiple prior studies sequentially, with oldest reviewed study dated 03/02. BREAST PARENCHYMAL COMPOSITION: Not dense: There are scattered areas of fibroglandular density. FINDINGS: MAMMOGRAPHIC FINDINGS: There are bilateral breast asymmetries scattered throughout both breasts, although no discrete mass o r architectural distortion is identified. There are no suspicious calcifications. ULTRASOUND: Complete US of all 4 quadrants of the breast/s and retroareolar region was reviewed. Right breast: In the periareolar location the right breast at 2:00 there is a slightly irregular shap ed fluid collection measuring 5 mm, likely benign. Left breast: At 4:00, 6 cm from the nipple there is a 5 mm cyst. At 5:00, 7 cm from the nipple there is an irregular shaped fluid collection which appears somewhat elongated measuring up to 2 cm. No int ernal vascularity or posterior features. IMPRESSION: 1. Bilateral fluid collections which are somewhat irregular including a 5 mm mass in the right breast at 2:00, 1 cm from the nipple and a 2 cm fluid collection in the left breast at 5:00, 7 cm from the nipple, likely benign. 2. Recommend 6 month follow-up diagnostic bilateral mammogram and Limited bilateral breast ultrasound BI-RADS category 3, probably benign findings. Reviewed, dictated and finalized at location B. IMPRESSION: 1. Bilateral fluid collections which are somewhat irregular including a 5 mm ma ss in the right breast at 2:00, 1 cm from the nipple and a 2 cm fluid collectio n in the left breast at 5:00, 7 cm from the nipple, likely benign. 2. Recommend 6 month follow-up diagnostic bilateral mammogram and Limited bilat eral breast ultrasound BI-RADS category 3, probably benign findings.
== END 2024-09-01 13:57 | disposition home or self-care (01) ==
PROVIDERS: PCP Nurse Practitioner Family; Visit Provider Surgery
DX: N61.0 Mastitis without abscess (principal); N61.1 Abscess of the breast and nipple; N64.4 Mastodynia; R92.8 Other abnormal and inconclusive findings on diagnostic imaging of breast
CPT/HCPCS: 76641; 77062; 77066; G0279

== ENCOUNTER 2024-10-13 14:50 | Outpatient (CLI) | payer OTHER, SELFPAY ==
--- NOTE | ~2024-10-13 | MR_ITS ---
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 15 cc MultiHance administered intravenously. COMPARISON: Diagnostic mammogram and ultrasound dated 09/01/2024 FINDINGS: There are no abnormalities on the precontrast sequences. There is moderate background paren chymal enhancement. In the lower outer quadrant of the right breast there are 2 adjacent areas of non masslike enhancement measuring up to 1.5 and 2.2 cm greatest dimension, anterior-middle depth. In the lower outer quadrant of the right breast, middle depth there is a 9 x 7 x 4 mm oval enhancing mass w ith rapid washout enhancement and areas of internal fat, possibly benign intramammary lymph node. No evidence of signal abnormalities in the axillary or internal mammary node distributions. LEFT BREAST: No signal abnormalities on precontrast sequences. There is moderate background parenchy mal enhancement. In the lower outer quadrants of the left breast there is a regional area of nonmassl quinn enhancement with rapid washout kinetics. This is characterized as hypointense on T1 and T2. There is a small left subareolar fluid collection which does not enhance, nonspecific. No evidence of sign al abnormalities in the axillary or internal mammary node distributions.] IMPRESSION: 1: Bilateral areas of nonmasslike enhancement described above. No definite corresponding abnormality is seen on prior mammograms. Findings are nonspecific. Small oval enhancing mass in the lower outer q uadrant of the right breast measuring 9 mm, likely benign. Six-month follow-up diagnostic bilateral m ammogram and complete bilateral breast ultrasound recommended. BI-RADS CATEGORY 3-PROBABLY BENIGN FINDING RECOMMENDATION: 6 month follow up recommended. Reviewed, dictated and finalized at location B. H REPAIRER APPRENTICE IMPRESSION: 1: Bilateral areas of nonmasslike enhancement described above. No definite hannah esponding abnormality is seen on prior mammograms. Findings are nonspecific. Sm all oval enhancing mass in the lower outer quadrant of the right breast measuri ng 9 mm, likely benign. Six-month follow-up diagnostic bilateral mammogram and complete bilateral breast ultrasound recommended. BI-RADS CATEGORY 3-PROBABLY BENIGN FINDING RECOMMENDATION: 6 month follow up recommended.
== END 2024-10-13 14:51 | disposition home or self-care (01) ==
LOC: ANHIMG 14:54
PROVIDERS: PCP Nurse Practitioner Family; Visit Provider Surgery
DX: N64.52 Nipple discharge (principal); R92.8 Other abnormal and inconclusive findings on diagnostic imaging of breast
CPT/HCPCS: 77049; A9577; C8908

== ENCOUNTER 2025-01-20 01:03 | Day surgery (SDC) | payer OTHER, SELFPAY ==
[2025-01-11 09:13] VITALS: BMI 26.6
--- NOTE | 2025-01-11 09:22 | PC.NURSE ---
Report to the Outpatient Waiting Room, entrance under the green pavilion located off [facility], at time _1200_ on date _[phone]_. Planned Procedure Time: _2pm_.? Time changes happen often and if your time is changed the preop area will call you the afternoon before. - You and your visitor will be asked to self-screen and do not enter if you have any COVID symptoms. Please call surgeon if you need to reschedule. - A mask is optional within the hospital at this time. Patients may have clear liquids (water, carbonated beverages, clear teas, apple juice) until 3 hours prior to surgery with a maximum of 20 ounces. - No food from midnight until time of surgery and no smoking, or chewing tobacco (or any form of nicotine). No chewing gum, candy or mints. Take only the following medications with a SIP of water on the morning of surgery: ___Pain or nause medications if needed.____ DO NOT STOP ANY OF YOUR OTHER PRESCRIPTION MEDICATIONS PRIOR TO SURGERY EXCEPT THE FOLLOWING Hold all vitamins and supplements for 3 days per anesthesiologist. Medications to discontinue per physician ___None____ Date to take last dose Please no make-up, nail algerian, hairspray, perfume, deodorant, or body powder the day of surgery.? No jewelry (including any body piercings) or valuables the day of surgery, leave them at home.? Please take a shower or bath the night before, or the morning of, surgery with an antibacterial soap.? Wear comfortable, loose fitting clothing. - Jewelry must be removed prior to entering the operating room.? Rings and piercings that are not removed may be cut off. - The hospital will not accept responsibility for valuables.? - Please leave all valuables, including medications, at home the day of surgery. If you are going home after surgery, a licensed trailer driver must drive you home.? - NO public transportation without another adult if you receive anesthesia. - We recommend that an adult stay with you for 24 hours following discharge. - We also recommend that you do not drive, make important decision, drink alcoholic beverages, or take any drugs that were not prescribed by your health care provider for at least 24 hours after your discharge time. Follow any additional instructions given to you from your surgeon. Telephone instructions given to _Bridgette__and asked if any additional questions and then verbalized understanding. Patient advised to call surgeon office or pre surgery nurse liaison [phone] if any additional questions.
[2025-01-20] VITALS (7 sets, daily range): BP systolic 98–140; BP diastolic 58–96; PULSE 70–112; RESP 13–20; TEMP 36.2–36.3; O2SAT 99–100; BMI 27.0
--- OUTSIDE RECORDS SUMMARY | 2025-01-20 01:07 | XMS_ITS ---
Author Organization [facility] Address [address] [address] Care Team Providers Care Decal Decorator Name Role Phone Self, Ref Unavailable Unavailable Duy Camargo Unavailable [phone] Allergies No Known Allergies REASON FOR VISIT Follow up bilateral feet Medications Medication SIG (Take, Route, Frequency, Duration) Notes Start Date End Date Status Flexeril 10 MG 1 tablet at bedtime as needed Orally Once a day for 30 day(s) Active Percocet 10-325mg 1-2 tablets orally e very 4-6 hours prn moderate to severe pain for as needed Active Ammonium Molybdate 25 MCG/ML as directed Intravenous Acti ve Social History Tobacco Use: Social History Observation Description Date Details (start date - stop date) Never Smoker NA - NA Tobacco Use/Smoking Question Answer Notes Are you a nonsmoker Alcohol Screen Question Answer Notes Did you have a drink containing alcohol in the p ast year? No Points 0 Interpretation Negative Problems Problem Type SNOMED Code ICD Code Onset Dates Problem Status W/U Status Risk Notes Problem Discoid lupus erythematosus (248915986) Discoid lupus erythematosus (L93.0) Active confirmed Vital Signs Temperature 96.9 degrees Fahrenheit 08/21/20 23 Blood pressure systolic 122 mm Hg 08/21/20 23 Blood pressure diastolic 77 mm Hg 023 Heart Rate 69 /min 08/21/2023 Height 5 ft 6 in in 08/21/2023 Weight 155 lbs 08/21/2023 BMI 25.01 kg/m2 08/21/2023 Encounters Encounter Location Date Provider Diagnosis [facility] [id number] [address] 08/21/2023 Duy Camargo Onychomycosis B35.1 and Discoid lupus erythematosus L93.0 Assessments Encounter Date Diagnosis (ICD Code) Assessment Notes Treatment Notes Treatment Clinical Notes Section Notes 08/21/2023 Onychomycosis (ICD-10 - B35.1) Spoke to corie alvarado at length regarding her condition. Recent biopsy showed hyperkeratotic stratum corneam. I have referred the patient to dermatology and rheumatology for further workup and evaluation. 08/21/2023 Discoid lupus erythematosus (ICD-10 - L93.0) Spoke to corie alvarado at length regarding her condition. Recent biopsy showed hyperkeratotic stratum corneam. I have referred the patient to dermatology and rheumatology for further workup and evaluation. Plan Of Treatment Next Appt Details Follow Up: prn, Reason: Progress Notes * Rosita IBARRAVicenteOB:1975 (47 yo F)Acc No.[id number]:08/21/2023 Progress Notes Patient: Bridgette Osei Provider: Noah Camargo DPM :1975 A ge:47 Y S ex:Female Date:08/21/2023 Address:[address] [place] [address] Subjective: * Chief Complaints: * F ollow up bilateral feet * HPI: F UNCTIONAL STATUS: Patient is following up with bilateral feet onychomycosis. Patient reports no significant changes in symptoms since the lasty time she was in. Reports some white drainage coming from her feet/cuticles area that has been worsening since the last time she was in. * Medical History: * Surgical History: b ack surgery 2009, 2014,2019 breast augumentation 1999 * Hospitalization/Major Diagno stic Procedure: D enies Past Hospitalization * Family History: F ather: , diagnosed with Mental Illness. M other: . N on-Contributory. * Social History: T obacco Use: T obacco Use/Smoking A re you a n onsmoker. D rugs/Alcohol: A lcohol Screen D id you have a drink containing alcohol in the past year? N o, P oints 0 , I nterpretation N egative. * Medications: T akingFlexeril 10 MG Tablet 1 tablet at bedtime as needed Orally Once a dayAmmonium Molybdate 25 MCG/ML Solution as directed Intravenous Percocet 10-325mg tablet 1- 2 tablets orally every 4-6 hours prn moderate to severe painMedication List reviewed and reconciled with the patientTaking Flexeril 10 MG Tablet 1 tablet at bedtime as needed Orally Once a dayTaking Ammonium Molybdate 25 MCG/ML Solution as directed Intravenous Taking Percocet 10-325mg tablet 1-2 tablets orally every 4-6 hours prn moderate to severe painMedication List reviewed and reconciled with the patient * Allergies: N .K.D.A.no[Allergies Verified] Objective: * Vitals: B P:122/77 mm Hg, HR:69 /min, Temp:96.9 F, Ht: 5 ft 6 in, Wt:155 lbs, BMI:25.01 Index, Ht-cm: 167.64, Wt-k.31. * Physical Examination: L er extremity physical exam: Vasc- DP, PT pulses 2/4 bilateral, CFT < 3 sec. Temperature is warm to warm proximal to distal. Neuro- Light touch sensation intact. Protective sensation is intact via gross palpation. Derm- No open lesions, rashes. No edema, erythema, or ecchymosis. Nails thickened, dystrophic, with subungual debris times 10. MSK- Rectus foot type. Both feet fully flexible. Rectus digits. Strength 5/5 bilateral AT/ PT/EDL/EHL/FDL/FHL/PB/PL/GS complex. Rectus RCSP bilateral. STJ ROM 30 deg inv, 10 deg ev. Ankle DF 90 deg with knee extended, 100 deg with knee flexed bilateral. External hip rotation 60 deg bilaterally, internal hip rotation 10 deg. Rectus patellae. Assessment: * Assessment: 1. D iscoid lupus erythematosus - L93.0 2 . O nychomycosis - B35.1 (Primary) Spoke to patient at length r egarding her condition. Recent biopsy showed hyperkeratotic stratum corneam. I have referred the patient to dermatology and rheumatology for further workup and evaluation. Plan: * Treatment: * Procedure Codes: * Follow Up: p rn * * Sign off status: Completed true * Provider: Noah Camargo DPM Date: 1 Generated for Chari gricelda/Pamela/eTransmitting on: 0 01/19/2025 11:07 PM PST History and Physical Notes * HPI (History of Present Illness) Category Sub-Category Detail Notes Category Not es FUNCTIONAL STATUS Patient is following up with bilateral feet onychomycosis. Patient reports no significant changes in symptoms since the lasty time she was in. Reports some white drainage coming from her feet/cuticles area that has been worsening since the last time she was in. Physical Examination Category Sub-Category Detail Notes Section Note s Lower extremity physical exam: Vasc- DP, PT pulses 2/4 bilateral, CFT < 3 sec. Temperature is warm to warm proximal to distal. Neuro- Light touch sensation intact. Protective sensation is intact via gross palpation. Derm- No open lesions, rashes. No edema, erythema, or ecchymosis. Nails thickened, dystrophic, with subungual debris times 10. MSK- Rectus foot type. Both feet fully flexible. Rectus digits. Strength 5/5 bilateral AT/ PT/EDL/EHL/FDL/FHL/PB/PL/GS complex. Rectus RCSP bilateral. STJ ROM 30 deg inv, 10 deg ev. Ankle DF 90 deg with knee extended, 100 deg with knee flexed bilateral. External hip rotation 60 deg bilaterally, internal hip rotation 10 deg. Rectus patellae.
--- OUTSIDE RECORDS SUMMARY | 2025-01-20 01:07 | XMS_ITS | Patient Health Record ---
Author Organization [facility] Address [address] [address] Care Team Providers Care Glove Pairer Name Role Phone Self, Ref Unavailable Unavailable Allergies No Known Allergies Reason For Referral No Information Medications Medication SIG (Take, Route, Frequency, Duration) Notes Start Date End Date Status Flexeril 10 MG 1 tablet at bedtime as needed Orally Once a day for 30 day(s) Active Ammonium Molybdate 25 MCG/ML as directed Intravenous Acti ve Percocet 10-325mg 1-2 tablets orally e very 4-6 hours prn moderate to severe pain for as needed Active Social History Tobacco Use: Social History Observation [...] Status Risk Notes Problem Discoid lupus erythematosus (616434669) Discoid lupus erythematosus (L93.0) Active confirmed Plan Of Treatment Pending Test Test Name Order Date Fungus Culture With Stain 07/31/2023 Foot 3 or more views 09/20/2023 CL TX METATARSAL FX 09/20/2023 DME Vectra Air Basic Walker TALL (OTS FI T) (L4361) 09/20/2023 PROC: Biopsy, Nail Unit 07/31/2023 Insurance Providers Payer Name Payer Address Payer Phone Subscriber Number Group Number Insured Name Patient Relationship to Insured Coverage Start Date Coverage End Date DX COLLECTION ACCT Bridgette Reaves Self - patient is the insured [facility] [address] [address] [place] [address] [id number] Masoud Reaves Spouse - patient is the spouse of the insured Medical (General) History Medical History History ICD Code anemia reflux hypertension Surgical History Surgery Date(Month/Year) breast augumentation 1999 back surgery 2009, 2014,2019
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
--- OUTSIDE RECORDS SUMMARY | 2025-01-20 01:07 | XMS_ITS ---
Author Organization [facility] Address [address] [facility] [address] [place] [address] Care Team Providers Care Clarifier Operator Helper Name Role Phone Self, Ref Unavailable Unavailable Duy Camargo Unavailable [phone] Allergies No Known Allergies REASON FOR VISIT Right foot pain;NOXR Medications Medication SIG (Take, Route, Frequency, Duration) [...] ast year? No Points 0 Interpretation Negative Vital Signs Temperature 97.5 degrees Fahrenheit 09/20/20 23 Blood pressure systolic 114 mm Hg 09/20/20 23 Blood pressure diastolic 71 mm Hg 023 Heart Rate 73 /min 09/20/2023 Height 66 in 09/20/2023 Weight 155 lbs 09/20/2023 BMI 25.01 kg/m2 09/20/2023 Procedures Procedure Date Ordered Date Performed Result Body Sit e CL TX METATARSAL FX 09/20/2023 N/A DME Vectra Air Basic Walker TALL (OTS FIT) (L4361) 09/20/2023 N/A Encounters Encounter Location Date Provider Diagnosis [facility] [address] [facility] [address] [place] [address] 09/20/2023 Duy Camargo Stress fracture of metatarsal bone of right foot, initial encounter M84.374A and Plantar fasciitis of right foot M72.2 Assessments Encounter Date Diagnosis (ICD Code) Assessment Notes Treatment Notes Treatment Clinical Notes Section Notes 09/20/2023 Stress fracture of metatarsal bone of right foot, initial encounter (ICD-10 - M84.374A) I discussed the pathology, its likely cause, and options for treatment. I discussed conservative versus aggressive therapy. Will immobilize the part with Cam Walker completely refraining from unassisted walking. While symptomatic, use of an ice pack twice a day for 10-15 minutes until swelling has resolved. Rx for Ibuprofen given. [Recommended patient wear the assistive device every day as the structure of the foot/ankle allows.] Oral instructions and education concerning compliance given. Surgical correction discussed, however not indicated. Explained the risks of not having surgery which include but are not limited to: Nonunion, malunion, delayed union, chronic pain. RTC in 8 weeks for serial x-rays. 09/20/2023 Plantar fasciitis of right foot (ICD-10 - M72.2) I discussed the pathology, its likely cause, and options for treatment. I discussed conservative versus aggressive therapy. Will immobilize the part with Cam Walker completely refraining from unassisted walking. While symptomatic, use of an ice pack twice a day for 10-15 minutes until swelling has resolved. Rx for Ibuprofen given. [Recommended patient wear the assistive device every day as the structure of the foot/ankle allows.] Oral instructions and education concerning compliance given. Surgical correction discussed, however not indicated. Explained the risks of not having surgery which include but are not limited to: Nonunion, malunion, delayed union, chronic pain. RTC in 8 weeks for serial x-rays. Plan Of Treatment Pending Test Test Name Order Date Foot 3 or more views 09/20/2023 CL TX METATARSAL FX 09/20/2023 DME Vectra Air Basic Walker TALL (OTS FI T) (L4361) 09/20/2023 Next Appt Details Follow Up: 2 Months, Reason: Progress Notes * Rosita REAVESVicenteOB:1975 (47 yo F)Acc No.[id number]:09/20/2023 Progress Notes Patient: Bridgette KIRKLAND Provider: B enkitty Camargo DPM :1975 A ge:47 Y S ex:Female Date:09/20/2023 Address:[address] [place] [address] Subjective: * Chief Complaints: * R ight foot pain;NOXR * HPI: F UNCTIONAL STATUS: Patient presents to the office with a chief complaint of a painful RIGHT foot which has been present for several months. Patient has not experienced trauma to the area. Patient is able to walk. Pain is located in the joints of her 4th and 5th metatarsals, complains of sharp, stabbing pain as well as a burning sensation. Pain is frequent and present when walking and WB. Patient rates pain as 7/10. Patient has been treating this condition with Percocet. Patient admits problem is worsening since onset. Right foot IH XR today 09/20/23. Shoe size: 9. * Medical History: * Surgical History: b ack surgery 2009, 2014,2019breast augumentation 1999 * Hospitalization/Major Diagno stic Procedure: [...] bedtime as needed Orally Once a day Ammonium Molybdate 25 MCG/ML Solution as directed Intravenous Percocet 10-325mg tablet 1- 2 tablets orally every 4-6 hours prn moderate to severe pain Medication List reviewed and reconciled with the patientTaking Flexeril 10 MG Tablet 1 tablet at bedtime as needed Orally Once a day Taking Ammonium Molybdate 25 MCG/ML Solution as directed Intravenous Taking Percocet 10-325mg tablet 1-2 tablets orally every 4-6 hours prn moderate to severe pain Medication List reviewed and reconciled with the patient * Allergies: N .K.D.A.no[Allergies Verified] Objective: * Vitals: B P:114/71mm Hg, HR:73/min, Temp:97.5F, Ht: 66 in, Wt:155lbs, BMI:25.01Index, Ht- cm: 167.64, Wt-k.31. * Physical Examination: E xamination: The patient is appropriately dressed, articulate, awake, alert, and oriented x 3, appears their stated age and appears to be in good health. Dermatological: There is edema of the affected area. No open lesions or fracture blisters present. Vascular: Dorsalis pedis and posterior tibial pulses are palpated at 2/4 bilateral. Digital capillary fill time is <5 seconds bilateral. Neurological: Achilles and patellar reflexes are normal, brisk, and symmetrical bilateral. Epicritic sensation including light touch are intact and without focal motor or sensory deficit bilateral lower extremities. Musculoskeletal: Pain elicited on palpation of the RIGHT 3rd metatarsal. MPJ ROM's are full and without crepitation. STJ ROM is full and without crepitation. Ankle joint ROM is full and without crepitation with the knee extended. There are no significant foot or ankle deformities bilaterally. Pain on palpation of the medial calcaneal tubercle on the right heel. Assessment: * Assessment: 1. S tress fracture of metatarsal bone of right foot, initial encounter - M84.374A (Primary)?2. P lantar fasciitis of right foot - M72.2 I discussed the pathology, i ts likely cause, and options for treatment. I discussed conservative versus aggressive therapy. Will immobilize the part with Cam Walker completely refraining from unassisted walking. While symptomatic, use of an ice pack twice a day for 10-15 minutes until swelling has resolved. Rx for Ibuprofen given. [Recommended patient wear the assistive device every day as the structure of the foot/ankle allows.] Oral instructions and education concerning compliance given. Surgical correction discussed, however not indicated. Explained the risks of not having surgery which include but are not limited to: Nonunion, malunion, delayed union, chronic pain. RTC in 8 weeks for serial x-rays. Plan: * Treatment: ?Procedure: CL TX METATARSAL FX ?Procedure: DME Vectra Air Basic Walker TALL (OTS FIT) (L4361)* Bernardo Ybarra 09/20/2023 12 :58:38 PM PDT >done Patient was prescribed a CAM walker for foot fracture. The patient is ambulatory but has weakness, healing fracture and pain of their RIGHT lower extremity which requires stabilization from this semi- rigid orthosis to improve their function, protect the healing fracture, and decrease pain. * Procedure Codes: 7 3630 X-RAY EXAM OF [id number] CL TX METATARSAL [id number] Vectra Air Basic Walker TALL (OTS FIT) * Preventive Medicine: Counseling: B IL Care goal follow-up plan: A claritza Normal BMI Follow-up D ietary management education, guidance, and counseling, B IL management provided Y es. * Follow Up: 2 Months * * Sign off status: Completed true * Provider: Noah Camargo DPM Date: 11/20/2022 Generated for Chari madison/Pamela/Laminitting on: 0 01/19/2025 11:06 PM PST History and Physical Notes * HPI (History of Present Illness) Category Sub-Category Detail Notes Category Not es FUNCTIONAL STATUS Patient presents to the office with a chief complaint of a painful RIGHT foot which has been present for several months. Patient has not experienced trauma to the area. Patient is able to walk. Pain is located in the joints of her 4th and 5th metatarsals, complains of sharp, stabbing pain as well as a burning sensation. Pain is frequent and present when walking and WB. Patient rates pain as 7/10. Patient has been treating this condition with Percocet. Patient admits problem is worsening since onset. Right foot IH XR today 09/20/23. Shoe size: 9 Physical Examination Category Sub-Category Detail Notes Section Note s Examination: The patient is appropriately dressed, articulate, awake, alert, and oriented x 3, appears their stated age and appears to be in good health. Dermatological: There is edema of the affected area. No open lesions or fracture blisters present. Vascular: Dorsalis pedis and posterior tibial pulses are palpated at 2/4 bilateral. Digital capillary fill time is <5 seconds bilateral. Neurological: Achilles and patellar reflexes are normal, brisk, and symmetrical bilateral. Epicritic sensation including light touch are intact and without focal motor or sensory deficit bilateral lower extremities. Musculoskeletal: Pain elicited on palpation of the RIGHT 3rd metatarsal. MPJ ROM's are full and without crepitation. STJ ROM is full and without crepitation. Ankle joint ROM is full and without crepitation with the knee extended. There are no significant foot or ankle deformities bilaterally. Pain on palpation of the medial calcaneal tubercle on the right heel.
--- OUTSIDE RECORDS SUMMARY | 2025-01-20 01:07 | XMS_ITS | Referral Summary ---
Author Organization [facility] [employer] [facility] Address [address] [place] [address] Care Team Providers Care Shrimp Trawler Name Role Phone Unknown, Physician PA Primary [...] taking.Reported on 06/28/2022 MANUAL SELECTION NEEDED - [place] TABS Take by mouth. 0 01/21/20 Active [...] 07/06/2022 3:03 PM PDT Plan of Treatment Not on file Procedures Procedure Name Priority Date/Time Associated Diagnosis [...] 08/30/2020 10:32 AM PDT us Jose Manuel Moore DO PATHOLOGY/CYTOLOGY ORDERABLES F inal Result EXTERNAL LAB from Last 3 Months or Most Recently Relevant to Health Maintenance Insurance [employer] CHOICE POS II Care Teams Shrimp Trawler Relationship Specialty Start Date End Date Unknown, Physician LARON PCP - General 07/02/22
[2025-01-20] MEDS: ACETAMINOPHEN 500 MG TABLET 1000 MG PO (13:52)
[2025-01-20] MEDS: LACTATED RINGERS 1,000 ML 30 ML IV CONT (13:52)
--- NOTE | 2025-01-20 13:53 | P.PNAN_ITS ---
Anes - Initial Pre Proc Eval Procedure: Operation Date: 01/20/25 15:00 Proposed Procedures p Wound Debridement and Washout Chronic Right Subareolar Abscess, Possible Adjacent Tissue Transfer - Jennifer Brock MD Date/Time: 01/20/25 13:53 Surgeon: Jennifer Brock MD Pre Op Diagnosis: right abscess of breast and nipple Patient Data Age: 49 Gender: F Height: 1.68 m Weight: 76 kg Allergies Allergy/AdvReac Type Severity Reaction Status Date / Time No Known Allergies Allergy Verified 01/18/25 12:56 Home Medications ?Medication ?Instructions ?Recorded ?Confirmed ?Type hydroxychloroquine 200 mg tablet 200 mg PO DAILY 09/09/24 01/11/25 History cyclobenzaprine 10 mg tablet 10 mg PO TID 11/25/24 01/11/25 History ondansetron 8 mg disintegrating 8 mg PO Q12H PRN nausea and 01/06/25 01/11/25 Rx tablet vomiting #20 tabs oxycodone-acetaminophen 5 mg-325 1 tablet PO Q6H PRN pain 01/06/25 01/20/25 History mg tablet (Percocet) sumatriptan succinate 25 mg tablet See Rx Instructions PO .COMPLEX 01/06/25 01/11/25 Rx #10 tabs semaglutide (weight loss) 0.25 0.25 mg (0.5 mL) subcut WEEKLY #2 01/19/25 Rx mg/0.5 mL subcutaneous pen mL injector (Wegovy) semaglutide (weight loss) 0.5 0.5 mg (0.5 mL) subcut WEEKLY #2 mL 01/19/25 Rx mg/0.5 mL subcutaneous pen injector (Wegovy) semaglutide (weight loss) 1 mg/0.5 1 mg (0.5 mL) subcut WEEKLY #2 mL 01/19/25 Rx mL subcutaneous pen injector (Wegovy) Patient hx anesthesia problems: none Family hx anesthesia problems: none Results Review: All pre-operative results and documents have been reviewed as part of the pre- operative evaluation. [facility] Past Medical History Medical History Migraine GERD (gastroesophageal reflux disease) Cancer Arthritis Anemia History of CVA (cerebrovascular accident) 07/06. few residual speech and memory issues Breast pain COPD (chronic obstructive pulmonary disease) Breast abscess Surgical History Surgical History History of back surgery 2007 2010 2019 H/O breast augmentation 2003 H/O: hysterectomy 1996 Family History Family History Father Hypertension Depression Cerebrovascular accident Anxiety Heart disease Mother Thyroid disease Grandparent Diabetes mellitus Heart disease Sibling Heart disease Hypertension Social History Social History Social History: 01/04/25 very confident with medical forms Smoking packs per day: 1.5 Smoking cigarettes per day: 30.0 Years smoked: 15 Smoking pack-years: 22.50 Smoking status: Former smoker Tobacco type: cigarettes Smoking end date: 11/18/08 Alcohol intake: never Drinks per week: 1 Alcohol use details: Once every couple months Substance use: never Substance use type: does not use Last use: quit 2008 Do You Feel Safe in your Home?: Yes Lack of Transportation: No Lack of Food: Never True Current Housing: I Have Housing Concerned About Future Housing: No Difficulty Paying Gas/Electric Bills: No Difficulty Paying for Meds: No Currently Unemployed: No Education: Bachelor's Degree Difficulty w/ Childcare or Family Care: No Living arrangements: with family Spiritual care concerns: No Anes - Eval Final PreProcedure Day of Procedure 01/20/25 13:53 Patient weight: overweight Heart: regular rate and rhythm Lungs: clear to auscultation Airway: Mallampati scale class II Neurological: alert and oriented Last oral intake: >/= 8 hours ASA classification: III Emergent: no Anesthetic plan: proceed Anesthesia type and monitoring: general LMA and standard monitoring Results Review: All pre-operative results and documents have been reviewed as part of the pre- operative evaluation. Informed Consent: The patient's anesthetic plan and its attendant risks and benefits were discussed with the patient/family/POA. Questions were solicited and answers provided to the satisfaction of the patient/family/POA.
--- NOTE | 2025-01-20 14:31 | WPDHPUPDATE1 ---
History and Physical Update Update Date/Time: 01/20/25 14:31 - right breast washout of right subareolar area, possible excisional biopsy History and Physical has been reviewed, including an updated exam of the patient. There are NO changes in the patient's condition. Risks, benefits, and alternatives have been discussed and questions answered. Patient agrees to proceed with procedure.
[2025-01-20] MEDS: ceFAZolin 2 GM/D5W 50 ML 2 GM/50 ML BAG IVPB (14:45)
[2025-01-20] MEDS: BUPIVACAINE/EPINEPHRINE 0.5% 30 ML VIAL INFILTRATE (15:04)
--- NOTE | 2025-01-20 15:26 | P.OP_ITS ---
Procedure Note - Detailed Date of Procedure 01/20/25 Pre-op Diagnosis Chronic right subareolar abscess Post-op Diagnosis Same Procedure Performed Excisional biopsy of right nipple piercing track Surgeon Jennifer Brock MD Student Support Advisor Abby Copeland PA-C Anesthesia MAC Description of Procedure Patient was identified in the preoperative holding area brought to the operating room suite. She was laid supine in the OR table sequential compression devices were applied. Anesthesia was induced without difficulty. The right breast was prepped and draped in a sterile fashion. The previous periareolar incision was opened with a 15 blade and dissected towards the center of the nipple. There is no obvious evidence of infection or inflammation the subareolar area. All the tissue appeared unremarkable and healthy. I was unable to express any nipple discharge but she did have some cottage cheese like discharge from the previous piercing tracks on the medial and lateral aspect of the nipple. I then proceed to excise the tract fully to include a small rim of the nipple skin on both sides. The specimen was then sent to pathology as a permanent specimen. The cavity was irrigated with saline and hemostasis was assured. A single interrupted 2 0 Vicryl was used to to close the nipple and subareolar area to prevent nipple inversion. The deep dermal layer was then approximated with interrupted 3-0 Vicryl and the skin was then closed with 4-0 Monocryl in a subcuticular fashion. The nipple skin at the previous site of the trach was closed with single interrupted 5 0 fast gut. Bacitracin was applied to this area followed by 0 form. Steri-Strips were applied to the periareolar incision followed by a sterile dressing. Patient was awoken from anesthesia taken to the recovery in stable condition. All needles, instruments, sponge counts were correct as reported by the operating room staff. Patient tolerated the procedure well with no immediate complications. Estimated Blood Loss 2 Pathology Yes Complications No immediate complications Condition Stable Disposition PACU [facility] Billing Surgery - Charge Forward: Surgery Billing (CPT 50602)
[2025-01-20] MEDS: oxyCODONE HCL (*CRX) 5 MG TAB IR PO (16:26)
== END 2025-01-20 16:57 | disposition home or self-care (01) ==
PROVIDERS: PCP Nurse Practitioner Family; Visit Provider Surgery
PROC: (CPT 19120; principal; 2025-01-20 15:00)
DX: L90.5 Scar conditions and fibrosis of skin (principal); Z87.891 Personal history of nicotine dependence
CPT/HCPCS: 19120; 88304; A9270; J0690; J1100; J2003; J2250; J2405; J2704; J3010; J7120

== ENCOUNTER 2025-04-02 08:18 | Outpatient (CLI) | payer OTHER, SELFPAY ==
--- NOTE | ~2025-04-02 | US_ITS ---
US breast BI limited 04/02/2025 08:58 Indication: Follow-up bilateral abnormalities Procedure: High-resolution Limited ultrasound of both breasts Comparison: Comparison to multiple prior studies sequentially, with oldest reviewed study dated 03/02. Findings: Normal heterogeneous echotexture is identified in the subareolar location of both breasts. No discrete solid or cystic mass. Impression: 1: No sonographic evidence for malignancy in either breast. Routine yearly screening mammogram and regular clinical breast examination are recommended. BI-RADS CATEGORY 1 - NEGATIVE Reviewed, dictated and finalized at location A. Impression: 1: No sonographic evidence for malignancy in either breast. Routine yearly screening mammogram and regular clinical breast examination are recommended. BI-RADS CATEGORY 1 - NEGATIVE
--- OUTSIDE RECORDS SUMMARY | 2025-04-02 08:23 | XMS_ITS | Referral Summary ---
Author Organization [facility] [employer] [facility] Address [address] [place] [address] Care Team Providers Care Geography Department Chair Name Role Phone Unknown, Physician PA Primary [...] taking.Reported on 06/28/2022 MANUAL SELECTION NEEDED - [place] TABS Take by mouth. 0 01/21/20 Active [...] [employer] CHO[employer] POS II Care Teams Geography Department Chair Relationship Specialty Start Date End Date Unknown, Physician LARON PCP - General 07/02/22
--- OUTSIDE RECORDS SUMMARY | 2025-04-02 08:23 | XMS_ITS | Patient Health Record ---
Author Organization [facility] Address [address] [facility] [address] [place] [address] Care Team Providers Care Cabinet Finisher Name Role Phone Self, Ref Unavailable Unavailable [...] Status Risk Notes Problem Discoid lupus erythematosus ([id number]) Discoid lupus erythematosus (L93.0) Active confirmed Plan [...] Reaves Self - patient is the insured [facility] [address] [address] [place] [address] [id number] Masoud Reaves Spouse - patient is the spouse of the insured Medical (General) History Medical History History ICD Code anemia reflux hypertension Surgical History Surgery Date(Month/Year) breast augumentation 1999 back surgery 2009, 2014,2019
== END 2025-04-02 08:19 | disposition home or self-care (01) ==
LOC: ANHIMG 08:20
PROVIDERS: PCP Nurse Practitioner Family; Visit Provider Surgery
DX: N64.52 Nipple discharge (principal); N64.4 Mastodynia; N61.23 Granulomatous mastitis, bilateral breast
CPT/HCPCS: 76642

== ENCOUNTER 2025-05-12 00:34 | Day surgery (SDC) | payer OTHER, SELFPAY ==
[2025-05-07 15:23] VITALS: BMI 25.0
--- NOTE | 2025-05-07 15:35 | PC.NURSE ---
Report to the Outpatient Waiting Room, entrance under the green pavilion located off [facility], at time _1000_ on date _[id number]_. Planned Procedure Time: _1200_.? Time changes happen often and if your time is changed the preop area will call you the afternoon before. - You and your visitor will be asked to self-screen and do not enter if you have any COVID symptoms. Please call surgeon if you need to reschedule. - A mask is optional within the hospital at this time. Patients may have clear liquids (water, carbonated beverages, clear teas, apple juice) until 3 hours prior to surgery with a maximum of 20 ounces. - No food from midnight until time of surgery and no smoking, or chewing tobacco (or any form of nicotine). No chewing gum, candy or mints. Take only the following medications with a SIP of water on the morning of surgery: ___If needed percocet and or zofran. DO NOT STOP ANY OF YOUR OTHER PRESCRIPTION MEDICATIONS PRIOR TO SURGERY EXCEPT THE FOLLOWING Hold all vitamins and supplements for 3 days per anesthesiologist. Medications to discontinue per physician Date to take last szyl___[id number]____ Please no make-up, nail tunisian, hairspray, perfume, deodorant, or body powder the day of surgery.? No jewelry (including any body piercings) or valuables the day of surgery, leave them at home.? Please take a shower or bath the night before, or the morning of, surgery with an antibacterial soap.? Wear comfortable, loose fitting clothing.? - Jewelry must be removed prior to entering the operating room.? Rings and piercings that are not removed may be cut off. - The hospital will not accept responsibility for valuables.? - Please leave all valuables, including medications, at home the day of surgery. If you are going home after surgery, a licensed fork truck driver must drive you home.? - NO public transportation without another adult if you receive anesthesia. - We recommend that an adult stay with you for 24 hours following discharge. - We also recommend that you do not drive, make important decision, drink alcoholic beverages, or take any drugs that were not prescribed by your health care provider for at least 24 hours after your discharge time. Follow any additional instructions given to you from your surgeon. Telephone instructions given to __Leslie___and asked if any additional questions and then verbalized understanding. Patient advised to call surgeon office or pre surgery nurse liaison [phone] if any additional questions.
[2025-05-12] VITALS (8 sets, daily range): BP systolic 112–129; BP diastolic 65–87; PULSE 58–88; RESP 12–17; TEMP 36.3–36.9; O2SAT 99–100
[2025-05-12] MEDS: LACTATED RINGERS 1,000 ML 30 ML IV CONT (10:30)
[2025-05-12] MEDS: SCOPOLAMINE 1 MG PATCH 1 PATCH TRANSDERM (11:31)
[2025-05-12] MEDS: ACETAMINOPHEN 500 MG TABLET 1000 MG PO (11:31)
--- NOTE | 2025-05-12 12:08 | P.PNAN_ITS ---
Anes - Initial Pre Proc Eval Procedure: Operation Date: 05/12/25 11:30 Proposed Procedures p Excisional Biopsy Right Nipple Areola Complex, Possible Adjacent Tissue Transfer - Jennifer Brock MD Date/Time: 05/12/25 12:08 Surgeon: Jennifer Brock MD Pre Op Diagnosis: Subareolar Rt Breast Abscess Patient Data Age: 49 Gender: F Height: 1.68 m Weight: 70.5 kg Last Vital Signs Temp 36.9 C 05/12/25 11:28 Pulse 88 05/12/25 11:28 Resp 16 05/12/25 11:28 BP 129/84 05/12/25 11:28 Pulse Ox 100 05/12/25 11:28 O2 Del Method Room Air 05/12/25 11:28 Allergies Allergy/AdvReac Type Severity Reaction Status Date / Time No Known Allergies Allergy Verified 05/12/25 11:27 Home Medications ?Medication ?Instructions ?Recorded ?Confirmed ?Type cyclobenzaprine 10 mg tablet 10 mg PO TID 11/25/24 05/07/25 History oxycodone-acetaminophen 5 mg-325 1 tablet PO Q6H PRN pain 01/06/25 05/07/25 History mg tablet (Percocet) sumatriptan succinate 25 mg tablet See Rx Instructions PO .COMPLEX 01/06/25 05/07/25 Rx #10 tabs ondansetron 8 mg disintegrating 8 mg PO Q12H PRN nausea and 04/13/25 05/07/25 Rx tablet vomiting #20 tabs cyanocobalamin (vitamin B-12) 50 50 mcg PO DAILY 05/07/25 05/07/25 History mcg lozenges (Vitamin B-12) Patient hx anesthesia problems: none Family hx anesthesia problems: none Results Review: All pre-operative results and documents have been reviewed as part of the pre- operative evaluation. [facility] Past Medical History Medical History Migraine GERD (gastroesophageal reflux disease) Cancer Arthritis Anemia History of CVA (cerebrovascular accident) 07/06. few residual speech and memory issues Breast pain COPD (chronic obstructive pulmonary disease) Breast abscess Surgical History Surgical History History of back surgery 2007 2010 2019 H/O breast augmentation 2003 H/O: hysterectomy 1996 Family History Family History Father Hypertension Depression Cerebrovascular accident Anxiety Heart disease Mother Thyroid disease Grandparent Diabetes mellitus Heart disease Sibling Heart disease Hypertension Social History Social History Social History: 01/04/25 very confident with medical forms Smoking packs per day: 1.5 Smoking cigarettes per day: 30.0 Years smoked: 15 Smoking pack-years: 22.50 Smoking status: Former smoker Tobacco type: cigarettes Smoking end date: 11/18/08 Alcohol intake: current Drinks per week: 1 Alcohol use details: Once every couple months Substance use: never Substance use type: does not use Last use: quit 2008 Do You Feel Safe in your Home?: Yes Lack of Transportation: No Lack of Food: Never True Current Housing: I Have Housing Concerned About Future Housing: No Difficulty Paying Gas/Electric Bills: No Difficulty Paying for Meds: No Currently Unemployed: No Education: Bachelor's Degree Difficulty w/ Childcare or Family Care: No Living arrangements: with family Spiritual care concerns: No Anes - Eval Final PreProcedure Day of Procedure 05/12/25 12:08 Patient weight: normal Heart: regular rate and rhythm Lungs: clear to auscultation Airway: Mallampati scale class II Neurological: alert and oriented Last oral intake: >/= 8 hours ASA classification: III Emergent: no Anesthetic plan: proceed Anesthesia type and monitoring: general LMA and standard monitoring Results Review: All pre-operative results and documents have been reviewed as part of the pre- operative evaluation. Informed Consent: The patient's anesthetic plan and its attendant risks and benefits were discussed with the patient/family/POA. Questions were solicited and answers provided to the satisfaction of the patient/family/POA.
--- NOTE | 2025-05-12 12:17 | WPDHPUPDATE1 ---
History and Physical Update Update Date/Time: 05/12/25 12:17 - Excisional biopsy of right nipple areola complex, possible adjacent tissue transfer History and Physical has been reviewed, including an updated exam of the patient. There are NO changes in the patient's condition. Risks, benefits, and alternatives have been discussed and questions answered. Patient agrees to proceed with procedure.
[2025-05-12] MEDS: ceFAZolin 2 GM/D5W 50 ML 2 GM/50 ML BAG IVPB (12:29)
[2025-05-12] MEDS: BUPIVACAINE/EPINEPHRINE 0.5% 30 ML VIAL 20 ML INFILTRATE (12:51)
[2025-05-12] MEDS: LIDOCAINE 1% LOCAL INJ 20 ML VIAL INFILTRATE (12:51)
--- NOTE | 2025-05-12 12:53 | S_PTH ---
PATIENT: Bridgette Reaves LOC: [facility] U#:[id number] AGE/SX: 49/F ROOM: RE05/12/[address]: Jennifer Brock MD : 1975 BED: DIS: 05/12/2025 SPEC #: [id number] RECD: 05/12/25 14:09 STATUS: HEAVENLY RECathy #: [id number] LISETH: 05/12/25 12:[address]: Jennifer Brock DEPT: [facility] Surgical RECD BY: Sveta Bell ENTERED: 05/12/25 14:09 SP TYPE: Surgical OTHR DR: Irma Lyons, ANN MARIE Tissues: A - Breast Tissue Procedures: Hematoxylin and Eosin Stain Gross and Microscopic Level 4
--- NOTE | 2025-05-12 13:23 | W.PM.PROC2 ---
Procedure Note - Detailed Date of Procedure 05/12/25 Pre-op Diagnosis Chronic nonhealing right nipple wound Post-op Diagnosis Same Procedure Performed 1. Excisional biopsy of right nipple areola complex 2. Application skin substitute graft 100cm2 to trunk (CPT 46086) Surgeon Jennifer Brock MD Anesthesia General Description of Procedure Patient was identified in the preoperative holding area brought to the operating room sleep. She was laid supine in the OR table and sequential compression devices were applied. General anesthesia was induced without difficulty. The right chest area was prepped and draped in a sterile fashion. An elliptical incision was made around the nipple areola complex with a 15 blade and dissection was carried down through the subcutaneous tissue. The nipple areola complex and the subareolar fibrotic tissue as well as scar tissue was excised EN bloc and sent to pathology as a permanent specimen. Micro matrix flex paste (5cc) was placed at the wound base to optimize healing given the patient's previous history of multiple chronic wounds around her nipple and NAC area. The deep dermal layer was approximated with interrupted 3-0 Vicryl and the skin was then closed with 4-0 Monocryl in a subcuticular fashion. Dermabond was applied followed by sterile dressing and surgical bra. Patient was awoken from anesthesia and taken to the recovery area in stable condition. All needles, instruments, and sponge counts were correct as reported by the operating room staff. Patient tolerated the procedure well with no immediate complications. Estimated Blood Loss 2 Pathology Yes Complications No immediate complications [facility] Billing Surgery - Charge Forward: Surgery Billing (CPT 25945, CPT 87768)
[2025-05-12] MEDS: fentaNYL CITRATE INJ (*CRX) 100 MCG/2 ML VIAL 25 MCG IV PUSH ×2 (13:58→14:07)
== END 2025-05-12 15:20 | disposition home or self-care (01) ==
PROVIDERS: PCP Nurse Practitioner Family; Visit Provider Surgery
PROC: (CPT 19120; principal; 2025-05-12 11:30)
DX: N61.1 Abscess of the breast and nipple (principal); K21.9 Gastro-esophageal reflux disease without esophagitis; D64.9 Anemia, unspecified; J44.9 Chronic obstructive pulmonary disease, unspecified; Z79.891 Long term (current) use of opiate analgesic; Z98.890 Other specified postprocedural states; Z98.1 Arthrodesis status; Z87.891 Personal history of nicotine dependence; Z86.79 Personal history of other diseases of the circulatory system; Z85.9 Personal history of malignant neoplasm, unspecified; Z82.49 Family history of ischemic heart disease and other diseases of the circulatory system
CPT/HCPCS: 19120; 15273; 88305; A9270; J0690; J2003; J2250; J2405; J2704; J3010; J7120; Q4118; Q9968

== ENCOUNTER 2025-09-02 13:50 | Outpatient (CLI) | payer OTHER, SELFPAY ==
--- OUTSIDE RECORDS SUMMARY | 2019-03-17 19:00 | XMS_ITS | Continuity of Care Document ---
Author Organization [facility] Address [address] [place] [address] Phone Care Team Providers Care Baker Second Name Role Phone Irma Gomez Unavailable Unavailable Procedures Procedure Date EMERGENCY DEPT VISIT Advance Directives Directive Yes / No Effective Date File Name No Information Encounters Encounter Description Practice Location Reason(s) For Visit Diagnoses Date Provider Providers Copied on Encounter EMERGENCY DEPT VISIT [facility], [address] [facility], [place], [id number], [place] tel:[phone] [facility] No Information Ilia Solis. [address] [facility], [place], [id number], [place]. tel:[phone] Family History Family Member Type Diagnosis Age At Onset No Information Payers Payer name Insurance type Covered alliance party ID Authoraxela alem(s) [facility] [id number] Social History Type Description Quantity Date Captured Comments Sex Female Smoking Status No Information Chief Complaint And Reason For Visit No Information Reason For Referral Reason For Referral No Information History Of Present Illness Encounter Date Complaint History Of Prese nt Illness No Information Functional Status Date Functional Assessmen t No Information Instructions Date Instruction Additional Infor mation No Information Assessments Type Assessment Date No Information Patient Care Teams Name Effective Dates (start - stop) Status Members No Information
--- OUTSIDE RECORDS SUMMARY | 2025-07-24 04:00 | XMS_ITS ---
Author Organization [facility] Address [address] [address] Care Team Providers Care Service Desk Specialist Name Role Phone Migration, Provider Unavailable Unavailable REASON FOR VISIT [facility] Encounters Encounter Location Date Provider Diagnosis [facility] [address] [facility] [address] [place] [address] 07/24/2025 Provider Migration Plan Of Treatment No Information Progress Notes * LORELEI IBARRAOB:1975 (49 yo F)Acc No.[id number]:07/24/2025 Patient: SINTIA KIRKLAND :1975 A ge:49 Y S ex:Female [address] [place], [address] Subjective: * Chief Complaints: * E MR-Dhaval * * Date:
--- OUTSIDE RECORDS SUMMARY | 2025-07-25 04:00 | XMS_ITS ---
Author Organization [facility] Address [address] [address] Care Team Providers Care Brokerage Coordinator Name Role Phone Migration, Provider Unavailable Unavailable REASON FOR VISIT [facility] Encounters Encounter Location Date Provider Diagnosis [facility] [address] [facility] [address] [place] [address] 07/25/2025 Provider Migration Plan Of Treatment No Information Progress Notes * LORELEI IBARRAOB:1975 (49 yo F)Acc No.[id number]:07/25/2025 Patient: SINTIA KIRKLAND :1975 A ge:49 Y S ex:Female [address] [place], [address] Subjective: * Chief Complaints: * E MR-Dhaval * * Date:
--- NOTE | ~2025-09-02 | US_ITS ---
Clinical history:Follow-up. Breast pain. Left nipple discharge. Pain lateral left breast. Right nipple removed 06/13/2025. EXAM:Ultrasound breast bilateral Limited TECHNIQUE:Multiple static grayscale images and color Doppler images were obtained. Comparisons:04/02/2025 FINDINGS: No cystic or solid mass or focal fluid collection identified in the areas of concern in both breasts. IMPRESSION: 1. No sonographic abnormality identified. [id number]: Negative Reviewed, dictated and finalized at location Q.
--- OUTSIDE RECORDS SUMMARY | 2025-09-02 15:51 | XMS_ITS | Patient Health Record ---
Author Organization [facility] Address [address] [facility] [address] [place] [address] Care Team Providers Care Extrusion Bender Name Role Phone Migration, Provider Unavailable Unavailable Reason For Referral No Information Encounters Encounter Location Date Provider Diagnosis [facility] [address] [facility] [address] [place] [address] 07/24/2025 Provider Migration [facility] [address] [facility] [address] [place] [address] 07/25/2025 Provider Migration Plan Of Treatment No Information Insurance Providers Payer Name Payer Address Payer Phone Subscriber Number Group Number Insured Name Patient Relationship to Insured Coverage Start Date Coverage End Date [employer] [address] [address] [place] [address] SINTIA IBARRA Self - patient is the insured
--- OUTSIDE RECORDS SUMMARY | 2025-09-02 15:51 | XMS_ITS | Patient Health Record ---
Author Organization [facility] Address [address] [address] Care Team Providers Care Candy Bar Attendant Name Role Phone Self, Ref Unavailable Unavailable Allergies No Known Allergies Reason For Referral No Information Medications Medication SIG (Take, Route, Frequency, Duration) Notes Start Date End Date Status Flexeril 10 MG 1 tablet at bedtime as needed Orally Once a day; Duration: 30 day(s) Active Ammonium Molybdate 25 MCG/ML as directed Intravenous Acti ve Percocet 10-325mg 1-2 tablets orally e very 4-6 hours prn moderate to severe pain; Duration: as needed Active Social History Tobacco Use: [...] Status Risk Notes Problem Discoid lupus erythematosus ([id number]) Discoid lupus erythematosus (L93.0) Active confirmed Plan [...] Reaves Self - patient is the insured [facility] [address] [address] [place] [address] [id number] Masoud Reaves Spouse - patient is the spouse of the insured Medical (General) History Medical History History ICD Code anemia reflux hypertension Surgical History Surgery Date(Month/Year) breast augumentation 1999 back surgery 2009, 2014,2019
--- OUTSIDE RECORDS SUMMARY | 2025-09-02 15:51 | XMS_ITS | Clinical Summary ---
Author Organization [facility] Address [address] [place] [address] Care Team Providers Care Dance Teacher Name Role Phone Irma Lyonsgh ELDER Primary Care Provider + Encounters Date Type Department Care Team Description 06/10/2025 9:10 AM CDT - 06/10/2025 11:59 PM CDT Hospital Encounter [facility] Di[facility] Imaging [address] [place] [id number] Arthrodesis status; Spinal stenosis, lumbar region without neurogenic claudication Discharge Disposition: Discharge to home or self care 06/07/2025 2:55 PM CDT - 06/07/2025 11:59 PM CDT Hospital Encounter [facility] MRI [address] [place] [id number] Arthrodesis status Discharge Disposition: Discharge to home or self care 06/07/2025 2:55 PM CDT - 06/07/2025 11:59 PM CDT Hospital Encounter [facility] MRI [address] [place] [id number] Spinal stenosis, lumbar region without neurogenic claudication Discharge Disposition: Discharge to home or self care from Last 3 Months Social History Tobacco Use Types Packs/Day Years Used Date Smoking Tobacco: Never Assessed Comments Unknown Sex and Gender Information Value Date Recorded Sex Assigned at Not on file Legal Sex Female 11:32 AM CDT Gender Identity Not on file Sexual Orientation Not on file Plan of Treatment Health Maintenance Due Date Last Done Comments Breast Cancer Screening-Mammogram 1976 Cervical Cancer Screening 1976 Colon Cancer Screening-Colonoscopy 1976 Depression Screening 1976 Hepatitis C Screening 1976 Hepatitis B Screening 1994 Regular Well Visit/Exam 18-64 1994 Pneumococcal vaccine <65 (1 of 2 - PCV) 1995 DTaP/Tdap/Td Vaccine (2 - Td or Tdap) 03/21/201502/2005 Influenza Vaccine (#1) 2025 Procedures Procedure Name Priority Date/Time Associated Diagnosis Comments XR SPINE LUMBAR 2 OR 3 VIEWS Schedule Routine, Read Routine (OP Routine) 06/10/2025 9:23 AM CDT Spinal stenosis, lumbar region without neurogenic claudication XR SPINE CERVICAL 2 OR 3 VIEWS Schedule Routine, Read Routine (OP Routine) 06/10/2025 9:23 AM CDT Arthrodesis status MRI LUMBAR SPINE WO CONTRAST Schedule Routine, Read Routine (OP Routine) 06/07/2025 4:00 PM CDT Spinal stenosis, lumbar region without neurogenic claudication MRI CERVICAL SPINE WO CONTRAST Schedule Routine, Read Routine (OP Routine) 06/07/2025 3:33 PM CDT Arthrodesis status from Last 3 Months Results * XR Spine Lumbar 2 or 3 Views (06/10/2025 9:23 AM CDT) Anatomical Region Laterality Modality Spine N/A Computed Radiogr aphy 06/12/2025 12:4 4 PM CDT Narrative 06/12/2025 12:48 PM CDT EXAM DESCRIPTION: 1. XR SPINE CERVICAL 2 OR 3 VIEWS; 2. XR SPINE LUMBAR 2 OR 3 VIEWS REASON FOR STUDY: arthrodesis status Neck pain radiates down rt arm x 15 yrs, Hx cervical disc done 2007 and 2018 ; Spinal stenosis, lumbar region without neurogenic claudication Lbp radiates into rt buttocks x 2 yrs, NKI FINDINGS: Two views cervical spine and three views lumbar spine submitted with comparison 06/07/2025. Cervical spine: C4-C7 disc prostheses are in place. C2-C4 fusion noted. Mild C7-T1 degenerative disc disease. No acute fracture. No prevertebral soft tissue swelling. Left-sided cervical facet osteoarthritis. Lumbar spine: Mild dextrocurvature of the upper lumbar spine. No acute fracture. Moderate L4-L5 degenerative disc disease with inferior lumbar facet osteoarthritis. Arterial atherosclerosis is present. IMPRESSION: 1. C4-C7 disc prostheses. C2-C4 fusion. 2. Mild C7-T1 degenerative disc disease with left-sided cervical facet osteoarthritis. 3. Moderate L4-L5 degenerative disc disease with inferior lumbar facet osteoarthritis. THIS IS AN ELECTRONICALLY VERIFIED FINAL REPORT 06/12/2025 12:48 PM - Electronically signed by Artur Medrano M.D. T: Report ID: [id number] Reading Location: [place] [id number] Procedure Note Artur Medrano MD - 06/12/2025 EXAM DESCRIPTION: 1. XR SPINE CERVICAL 2 OR 3 VIEWS; 2. XR SPINE LUMBAR 2 OR 3 VIEWS REASON FOR STUDY: arthrodesis status Neck pain radiates down rt arm x 15 yrs, Hx cervical disc done 2007 [id number] ; Spinal stenosis, lumbar region without neurogenic claudication Lbp radiates into rt buttocks x 2 yrs, NKI FINDINGS: Two views cervical spine and three views lumbar spine submittedwith comparison 06/07/2025. Cervical spine: C4-C7 disc prostheses are in place. C2-C4 fusion noted. Mild C7-T1 degenerative disc disease. No acute fracture. No prevertebral softtissue swelling. Left-sided cervical facet osteoarthritis. Lumbar spine: Mild dextrocurvature of the upper lumbar spine. No acute fracture.Moderate L4-L5 degenerative disc disease with inferior lumbar facet osteoarthritis. Arterial atherosclerosis is present. IMPRESSION: 1. C4-C7 disc prostheses. C2-C4 fusion. 2. Mild C7-T1 degenerative disc disease with left-sided cervical facet osteoarthritis. 3. Moderate L4-L5 degenerative disc disease with inferior lumbar facet osteoarthritis. THIS IS AN ELECTRONICALLY VERIFIED FINAL REPORT 06/12/2025 12:48 PM - Electronically signed by Artur Medrano M.D. T: Report ID: [id number] Reading Location: [place] [address] Keiko Muniz ANALYST [employer] IMG XR PROCEDURES Lori l Result * XR Spine Cervical 2 or 3 Views (06/10/2025 9:23 AM CDT) Anatomical Region Laterality Modality Spine N/A Computed Radiogr aphy 06/12/2025 12:4 4 PM CDT Narrative 06/12/2025 12:48 PM CDT EXAM DESCRIPTION: 1. XR SPINE CERVICAL 2 OR 3 VIEWS; 2. XR SPINE LUMBAR 2 OR 3 VIEWS REASON FOR STUDY: arthrodesis status Neck pain radiates down rt arm x 15 yrs, Hx cervical disc done 2007 and 2018 ; Spinal stenosis, lumbar region without neurogenic claudication Lbp radiates into rt buttocks x 2 yrs, NKI FINDINGS: Two views cervical spine and three views lumbar spine submitted with comparison 06/07/2025. Cervical spine: C4-C7 disc prostheses are in place. C2-C4 fusion noted. Mild C7-T1 degenerative disc disease. No acute fracture. No prevertebral soft tissue swelling. Left-sided cervical facet osteoarthritis. Lumbar spine: Mild dextrocurvature of the upper lumbar spine. No acute fracture. Moderate L4-L5 degenerative disc disease with inferior lumbar facet osteoarthritis. Arterial atherosclerosis is present. IMPRESSION: 1. C4-C7 disc prostheses. C2-C4 fusion. 2. Mild C7-T1 degenerative disc disease with left-sided cervical facet osteoarthritis. 3. Moderate L4-L5 degenerative disc disease with inferior lumbar facet osteoarthritis. THIS IS AN ELECTRONICALLY VERIFIED FINAL REPORT 06/12/2025 12:48 PM - Electronically signed by Artur Medrano M.D. T: Report ID: [id number] Reading Location: [id number] Procedure Note Artur Medrano MD - 06/12/2025 EXAM DESCRIPTION: 1. XR SPINE CERVICAL 2 OR 3 VIEWS; 2. XR SPINE LUMBAR 2 OR 3 VIEWS REASON FOR STUDY: arthrodesis status Neck pain radiates down rt arm x 15 yrs, Hx cervical disc done 2007 [id number] ; Spinal stenosis, lumbar region without neurogenic claudication Lbp radiates into rt buttocks x 2 yrs, NKI FINDINGS: Two views cervical spine and three views lumbar spine submittedwith comparison 06/07/2025. Cervical spine: C4-C7 disc prostheses are in place. C2-C4 fusion noted. Mild C7-T1 degenerative disc disease. No acute fracture. No prevertebral softtissue swelling. Left-sided cervical facet osteoarthritis. Lumbar spine: Mild dextrocurvature of the upper lumbar spine. No acute fracture.Moderate L4-L5 degenerative disc disease with inferior lumbar facet osteoarthritis. Arterial atherosclerosis is present. IMPRESSION: 1. C4-C7 disc prostheses. C2-C4 fusion. 2. Mild C7-T1 degenerative disc disease with left-sided cervical facet osteoarthritis. 3. Moderate L4-L5 degenerative disc disease with inferior lumbar facet osteoarthritis. THIS IS AN ELECTRONICALLY VERIFIED FINAL REPORT 06/12/2025 12:48 PM - Electronically signed by Artur Medrano M.D. T: Report ID: [id number] Reading Location: [place] [address] Keiko Muniz ANALYST [employer] IMG XR PROCEDURES Lori l Result * MRI Lumbar Spine WO Contrast (06/07/2025 4:00 PM CDT) Anatomical Region Laterality Modality Spine N/A Magnetic Resonan ce 06/08/2025 9:59 AM CDT Narrative 06/08/2025 10:04 AM CDT EXAM DESCRIPTION: MRI LUMBAR SPINE WO CONTRAST REASON FOR STUDY: spinal stenosis, lumbar region without neurogenic claudication Hx of lumbar spinal stenosis, chronic lower back pain. No surgery. TECHNIQUE: Sagittal and Axial imaging includes T1, T2, STIR sequences. COMPARISON: No prior studies are available for comparison at time of this dictation. FINDINGS: SEGMENTATION: No transitional anatomy. The lowest well-developed disc space is labeled L5-S1. ALIGNMENT: There is trace retrolisthesis of L4 over L5. otherwise normal alignment. VERTEBRAE: Normal vertebral body heights. Tiny Schmorl's nodes. Mild type 1 Modic endplate changes of the L3 superior endplate and opposing L4-L5 endplates. DISC HEIGHT: Mild disc space height loss at L4-L5 with disc desiccation and small annular fissure. HARDWARE: None in the spine. CORD/CAUDA: Conus tip at T12-L1. Normal. LOWER THORACIC: Incompletely imaged. No stenosis seen. INDIVIDUAL DISC LEVELS: L1-L2: Trace disc bulge. Mild bilateral facet arthropathy. No neuroforaminal stenosis. No spinal canal stenosis. L2-L3: Trace disc bulge. Mild bilateral facet arthropathy. Ligamentum flavum infolding. No neuroforaminal stenosis. No spinal canal stenosis. L3-L4: Trace disc bulge. Mild bilateral facet arthropathy. Ligamentum flavum infolding. Mild bilateral neuroforaminal stenosis. No spinal canal stenosis. L4-L5: Small symmetrical disc bulge. Annular fissure. Moderate bilateral facet arthropathy. Ligamentum flavum infolding. Mild bilateral neuroforaminal stenosis. Mild spinal canal stenosis. L5-S1: Trace disc bulge. Mild bilateral facet arthropathy. No neuroforaminal stenosis. No spinal canal stenosis. SACRUM: Visualized upper sacrum intact. VISUALIZED UPPER ABDOMEN: No significant abnormality. OTHER: No other significant findings. IMPRESSION: Mild lumbar degenerative changes as described above. No high-grade spinal canal or neural foraminal stenosis. THIS IS AN ELECTRONICALLY VERIFIED FINAL REPORT 06/08/2025 10:04 AM - Electronically signed by Marcial Mendoza M.D. MM T: Report ID: [id number] Reading Location: [place] [id number] Procedure Note Marcial Mendoza MD - 06/08/2025 EXAM DESCRIPTION: MRI LUMBAR SPINE WO CONTRAST REASON FOR STUDY: spinal stenosis, lumbar region without neurogenic claudication Hx of lumbar spinal stenosis, chronic lower back pain. No surgery. TECHNIQUE: Sagittal and Axial imaging includes T1, T2, STIR sequences. COMPARISON: No prior studies are available for comparison at time of this dictation. FINDINGS: SEGMENTATION: No transitional anatomy. The lowestwell-developed disc space is labeled L5-S1. ALIGNMENT: There is trace retrolisthesis of L4 over L5. otherwisenormal alignment. VERTEBRAE: Normal vertebral body heights. Tiny Schmorl's nodes. Mildtype 1 Modic endplate changes of the L3 superior endplate and opposing L4-L5 endplates. DISC HEIGHT: Mild disc space height loss at L4-L5 with disc desiccationand small annular fissure. HARDWARE: None in the spine. CORD/CAUDA: Conus tip at T12-L1. Normal. LOWER THORACIC: Incompletely imaged. No stenosis seen. INDIVIDUAL DISC LEVELS: L1-L2: Trace disc bulge. Mild bilateral facet arthropathy. No neuroforaminal stenosis. No spinal canal stenosis. L2-L3: Trace disc bulge. Mild bilateral facet arthropathy. Ligamentum flavum infolding. No neuroforaminal stenosis. No spinal canal stenosis. L3-L4: Trace disc bulge. Mild bilateral facet arthropathy. Ligamentum flavum infolding. Mild bilateral neuroforaminal stenosis. No spinalcanal stenosis. L4-L5: Small symmetrical disc bulge. Annular fissure. Moderatebilateral facet arthropathy. Ligamentum flavum infolding. Mild bilateralneuroforaminal stenosis. Mild spinal canal stenosis. L5-S1: Trace disc bulge. Mild bilateral facet arthropathy. No neuroforaminal stenosis. No spinal canal stenosis. SACRUM: Visualized upper sacrum intact. VISUALIZED UPPER ABDOMEN: No significant abnormality. OTHER: No other significant findings. IMPRESSION: Mild lumbar degenerative changes as described above. No high-grade spinal canal or neural foraminal stenosis. THIS IS AN ELECTRONICALLY VERIFIED FINAL REPORT 06/08/2025 10:04 AM - Electronically signed by Marcial Mendoza M.D. T: Report ID: [id number] Reading Location: [id number] Keiko Muniz ANALYST [employer] IMG MRI PROCEDURES Fin al Result * MRI Cervical Spine WO Contrast (06/07/2025 3:33 PM CDT) Anatomical Region Laterality Modality Spine N/A Magnetic Resonan ce 06/08/2025 10:0 5 AM CDT Narrative 06/08/2025 10:16 AM CDT EXAM DESCRIPTION: MRI CERVICAL SPINE WO CONTRAST REASON FOR STUDY: arthrodesis status Chronic neck pain, hx of cervical fusion, now with radiating pain into right shoulder x 6-8 months. TECHNIQUE: Sagittal and Axial imaging includes T1, T2, STIR and gradient echo sequences. COMPARISON: No prior studies are available for comparison at time of this dictation. FINDINGS: ALIGNMENT: Straightening of the lordosis. VERTEBRAE: Normal vertebral body heights and marrow signal at the nonoperative levels. DISCS: Mild disc space height loss at C2-C3. HARDWARE: Status post anterior cervical discectomy and fusion at C4 to C7. The instrumentation is not well evaluated with MRI technique. There is extensive hardware artifact which limits evaluation of osseous and soft tissue details. CORD: Normal in size and signal intensity within the limitations of susceptibility artifact. INDIVIDUAL LEVELS: C2-C3: Trace posterior disc osteophyte complex. There is mild facet arthropathy. There is minimal uncovertebral joint disease. There is mild right neuroforaminal stenosis. There is no spinal canal stenosis. C3-C4: No significant disc osteophyte complex. There is severe left and mild right facet arthropathy. There is no uncovertebral joint disease. There is minimal bilateral neuroforaminal stenosis. There is no spinal canal stenosis. C4-C5: ACDF. There is severe left and mild right facet arthropathy. There vrdz-sb-okhwhbrb left and no right neuroforaminal stenosis. There is mild spinal canal stenosis. C5-C6: ACDF. There is moderate left and mild right facet arthropathy. No significant neuroforaminal stenosis. There is wbuw-xd-audokjrz spinal canal stenosis. C6-C7: ACDF. There is moderate bilateral facet arthropathy. There ambo-zl-jzonvxot bilateral neuroforaminal stenosis. There is mild spinal canal stenosis. C7-T1: Small disc bulge. There is moderate bilateral facet arthropathy. There is minimal uncovertebral joint disease. There is no neuroforaminal stenosis. There is no spinal canal stenosis. OTHER: Mild right tonsillar ectopia without significant crowding of the foramen magnum. IMPRESSION: 1. Status post anterior cervical discectomy and fusion at C4-C7. There is extensive susceptibility artifact from the instrumentation which limits evaluation of osseous and soft tissue details. 2. Multilevel degenerative changes of the cervical spine, as described in detail above, with up to apji-oq-srlycnsf spinal canal stenosis at C5-C6. THIS IS AN ELECTRONICALLY VERIFIED FINAL REPORT 06/08/2025 10:16 AM - Electronically signed by Marcial Mendoza M.D. MM T: Report ID: [id number] Reading Location: [place] [address] Procedure Note Marcial Mendoza MD - 06/08/2025 EXAM DESCRIPTION: MRI CERVICAL SPINE WO CONTRAST REASON FOR STUDY: arthrodesis status Chronic neck pain, hx of cervical fusion, now with radiating pain intoright shoulder x 6-8 months. TECHNIQUE: Sagittal and Axial imaging includes T1, T2, STIR and gradientecho sequences. COMPARISON: No prior studies are available for comparison at time of this dictation. FINDINGS: ALIGNMENT: Straightening of the lordosis. VERTEBRAE: Normal vertebral body heights and marrow signal at the nonoperative levels. DISCS: Mild disc space height loss at C2-C3. HARDWARE: Status post anterior cervical discectomy and fusion at C4 toC7. The instrumentation is not well evaluated with MRI technique. There is extensive hardware artifact which limits evaluation of osseous and softtissue details. CORD: Normal in size and signal intensity within the limitations of susceptibility artifact. INDIVIDUAL LEVELS: C2-C3: Trace posterior disc osteophyte complex. There is mild facet arthropathy. There is minimal uncovertebral joint disease. There ismild right neuroforaminal stenosis. There is no spinal canal stenosis. C3-C4: No significant disc osteophyte complex. There is severe left and mild right facet arthropathy. There is no uncovertebral joint disease. There is minimal bilateral neuroforaminal stenosis. There is no spinal canal stenosis. C4-C5: ACDF. There is severe left and mild right facet arthropathy. There bcll-kb-xcwszzjj left and no right neuroforaminal stenosis. Thereis mild spinal canal stenosis. C5-C6: ACDF. There is moderate left and mild right facet arthropathy.No significant neuroforaminal stenosis. There is hfdo-na-lycqdlbj spinalcanal stenosis. C6-C7: ACDF. There is moderate bilateral facet arthropathy. There ltul-ja-kohymyyq bilateral neuroforaminal stenosis. There is mild spinal canal stenosis. C7-T1: Small disc bulge. There is moderate bilateral facetarthropathy. There is minimal uncovertebral joint disease. There is noneuroforaminal stenosis. There is no spinal canal stenosis. OTHER: Mild right tonsillar ectopia without significant crowding ofthe foramen magnum. IMPRESSION: 1. Status post anterior cervical discectomy and fusion at C4-C7. Thereis extensive susceptibility artifact from the instrumentation which limits evaluation of osseous and soft tissue details. 2. Multilevel degenerative changes of the cervical spine, as describedin detail above, with up to tsib-tv-nbqonxbb spinal canal stenosis atC5-C6. THIS IS AN ELECTRONICALLY VERIFIED FINAL REPORT 06/08/2025 10:16 AM - Electronically signed by Marcial Mendoza M.D. MM T: Report ID: [id number] Reading Location: [place] [address] Keiko Muniz NP IMG MRI PROCEDURES Fin al Result from Last 3 Months Insurance Care Teams Dance Teacher Relationship Specialty Start Date End Date Irma Lyons NP [address] [place] [id number] PCP - General Nurse Practitioner 04/30/25
== END 2025-09-02 13:51 | disposition home or self-care (01) ==
LOC: ANHFOHIMG 13:51
PROVIDERS: PCP Nurse Practitioner Family; Visit Provider Surgery
DX: N64.4 Mastodynia (principal)
CPT/HCPCS: 76642